=== PATIENT | female | born 1955 | race Caucasian/White ===

== ENCOUNTER → 2016-09-07 | Outpatient (CLI) | payer MEDICARE, OTHER ==
--- NOTE | 2016-09-09 11:20 | MM ---
Reason for exam: screening (asymptomatic). Last mammogram was performed 2 years and 7 months ago. History: Patient is postmenopausal. Physical Findings: A clinical breast exam by your physician is recommended on an annual basis and results should be correlated with mammographic findings. MG 3D Screening Mammo W/Cad Bilateral CC and MLO view(s) were taken. Prior study comparison: February 18, 2014, mammogram. There are stable bilateral round masses. No significant changes when compared with prior studies. ASSESSMENT: Benign, BI-RAD 2 RECOMMENDATION: Routine screening mammogram of both breasts in 1 year.
== END | disposition home or self-care (01) ==
LOC: RADMAMWWP 09:09
PROVIDERS: ATTEND Family Medicine
DX: Z12.31 Encounter for screening mammogram for malignant neoplasm of breast (principal)
CPT/HCPCS: 77063; G0202

== ENCOUNTER 2017-03-23 05:54 | Emergency (ER) | payer MEDICARE, OTHER ==
[2017-03-23 06:00] VITALS: BP 96/68; PULSE 87; RESP 18; TEMP 97.5
[2017-03-23] MEDS ORDERED: KETOROLAC 60 MG/2 ML VIAL IM STA (06:35)
--- NOTE | 2017-03-23 06:40 | ED ---
General Adult HPI - General Chief complaint: Extremity Injury, Lower Stated complaint: foot pain Time Seen by Provider: 03/23/17 06:17 Source: patient, RN notes reviewed Mode of arrival: EMS Limitations: no limitations - History of Present Illness Initial comments: Patient is a pleasant [age]-year-old female presenting to the emergency Department with left great toe pain. Onset of symptoms was a day or 2 ago. Discomfort has been worsening since that time. Discomfort feels like an ache and is nagging. No history of similar symptoms previously. Discomfort does increase with movement. No other area of involvement. No fever. - Related Data Home Medications Medication Instructions Recorded Confirmed DULoxetine HCL [Cymbalta] 30 mg PO DAILY 12/31/15 01/08/16 Ergocalciferol [Vitamin D2 50,000 unit PO FR 12/31/15 01/08/16 (DRISDOL)] Gabapentin [Neurontin] 300 mg PO TID PRN 01/08/16 01/08/16 metFORMIN HCL [Glucophage] 500 mg PO BID 01/08/16 01/08/16 Previous Rx's Medication Instructions Recorded Hydrocodone/Acetaminophen [[place] 1 tab PO Q6HR PRN #20 tab 12/31/15 5-325] Nystatin 100,000 Unit/gm Powd 1 applic TOPICAL BID #30 gram 12/31/15 [Mycostatin Powder] Butalb/APAP/Caff 50-325-40Mg 1 each PO Q4HR PRN #0 tab 01/14/16 [Fioricet 50-325-40] Famotidine [Pepcid] 20 mg PO DAILY tab 01/14/16 Loperamide [Imodium] 2 mg PO QID PRN #0 cap 01/14/16 amLODIPine [Norvasc] 5 mg PO DAILY #0 tab 01/14/16 Indomethacin [Indocin] 50 mg PO TID PRN #20 capsule 03/23/17 Allergies Allergy/AdvReac Type Severity Reaction Status Date / Time No Known Allergies Allergy Verified 03/23/17 05:55 Review of Systems ROS Statement: Those systems with pertinent positive or pertinent negative responses have been documented in the HPI. ROS Other: All systems not noted in ROS Statement are negative. Constitutional: Denies: fever Eyes: Denies: eye pain ENT: Denies: ear pain Respiratory: Denies: cough Cardiovascular: Denies: chest pain Endocrine: Denies: fatigue Gastrointestinal: Denies: abdominal pain Genitourinary: Denies: dysuria Musculoskeletal: Denies: back pain Skin: Denies: lesions Neurological: Denies: headache Past Medical History Past Medical History: Diabetes Mellitus, Hyperlipidemia, Hypertension, Seizure Disorder Additional Past Medical History / Comment(s): uti, cerebral palsy on with side side weakness. History of Any Multi-Drug Resistant Organisms: None Reported Past Surgical History: Orthopedic Surgery Additional Past Surgical History / Comment(s): wrist surgery, right ankle, Past Anesthesia/Blood Transfusion Reactions: No Reported Reaction Past Psychological History: Anxiety, Depression Smoking Status: Never smoker Past Alcohol Use History: None Reported Past Drug Use History: None Reported - Past Family History Father Family Medical History: Dementia Additional Family Medical History / Comment(s): Parkinsons and Alzheimers Mother Family Medical History: Myocardial Infarction ([place]) General Exam Limitations: no limitations General appearance: alert, in no apparent distress Eye exam: Present: normal appearance Respiratory exam: Present: normal lung sounds bilaterally Cardiovascular Exam: Present: regular rate, normal rhythm Extremities exam: Present: other (Left great toe at the metatarsophalangeal joint with mild swelling and mild erythema. There is warmth. Discomfort with range of motion.) Neurological exam: Present: alert Psychiatric exam: Present: normal affect, normal mood Skin exam: Present: erythema (Mild erythema left great toe at the metatarsal interphalangeal joint.) Course Vital Signs 03/23/17 05:55 Temperature 97.5 F L Pulse Rate 87 Respiratory 18 Rate Blood Pressure 96/68 O2 Sat by Pulse 99 Oximetry Medical Decision Making - Medical Decision Making Patient updated including foods to avoid. Patient states these are all of her favorite foods. Disposition Clinical Impression: Gout Disposition: HOME SELF-CARE Condition: Stable Instructions: Gout (ED) Additional Instructions: Please follow-up to in the next couple days for recheck and further evaluation and further medications. Return for fever, worsening or change in symptoms or other concerns. Prescriptions: Indomethacin [Indocin] 50 mg PO TID PRN #20 capsule PRN Reason: Pain Referrals: Tonya Walalce DO [Primary Care Provider] - 1-2 days Time of Disposition: 06:40
== END 2017-03-23 06:51 | disposition home or self-care (01) ==
LOC: EC 05:54
DX: M10.9 Gout, unspecified (principal); F32.9 Major depressive disorder, single episode, unspecified; F41.9 Anxiety disorder, unspecified; E11.9 Type 2 diabetes mellitus without complications; G40.909 Epilepsy, unspecified, not intractable, without status epilepticus; Z98.890 Other specified postprocedural states; Z79.84 Long term (current) use of oral hypoglycemic drugs; Z79.899 Other long term (current) drug therapy
CPT/HCPCS: 99283; 96372; J1885

== ENCOUNTER 2017-04-11 06:50 | Day surgery (SDC) | payer MEDICARE, OTHER ==
[2017-04-08 09:43] VITALS: BMI 44.9
[2017-04-11 07:28] VITALS: RESP 16; TEMP 98.2
[2017-04-11] MEDS ORDERED: LACTATED RINGERS 1,000 ML IV ONE (07:28)
[2017-04-11 07:34] LABS: Glucose,Whole Blood 128 mg/dL (75-99)
[2017-04-11] MEDS ORDERED: PROPOFOL 10 MG/ML 20 ML VIAL IV ONE (07:45)
[2017-04-11] MEDS ORDERED: MIDAZOLAM 2 MG/2 ML VIAL ONE (07:45)
[2017-04-11] MEDS ORDERED: fentaNYL (PF) 50 MCG/ML 2 ML AMP ONE (07:45)
--- NOTE | 2017-04-11 07:50 | P.GSHP ---
History of Present Illness H&P Date: 04/11/17 Chief Complaint: Screening colonoscopy This 61-year-old female who presents today for screening colonoscopy. She denies a significant GI complaints. - Constitutional Constitutional: Reports as per HPI Past Medical History Past Medical History: Diabetes Mellitus, Hyperlipidemia, Hypertension Additional Past Medical History / Comment(s): uti, states does not have high BP anymore. Cerebral Palsy with R sided weakness. History of Any Multi-Drug Resistant Organisms: None Reported Past Surgical History: Orthopedic Surgery Additional Past Surgical History / Comment(s): wrist surgery, right ankle Past Anesthesia/Blood Transfusion Reactions: No Reported Reaction Smoking Status: Never smoker - Past Family History Father Family Medical History: Dementia Additional Family Medical History / Comment(s): Parkinsons and Alzheimers Mother Family Medical History: Myocardial Infarction ([place]) Medications and Allergies Home Medications Medication Instructions Recorded Confirmed Type DULoxetine HCL [Cymbalta] 30 mg PO DAILY 12/31/15 04/08/17 History Ergocalciferol [Vitamin D2 50,000 unit PO FR 12/31/15 04/08/17 History (DRISDOL)] Nystatin 100,000 Unit/gm Powd 1 applic TOPICAL BID #30 gram 12/31/15 04/11/17 Rx [Mycostatin Powder] metFORMIN HCL [Glucophage] 500 mg PO BID 01/08/16 04/08/17 History Butalb/APAP/Caff 50-325-40Mg 1 each PO Q4HR PRN #0 tab 01/14/16 04/11/17 Rx [Fioricet 50-325-40] Famotidine [Pepcid] 20 mg PO DAILY tab 01/14/16 04/08/17 Rx Lisinopril-Hctz 20-25 mg 20 - 25 PO QAM 04/11/17 History [Zestoretic 20-25] Allergies Allergy/AdvReac Type Severity Reaction Status Date / Time No Known Allergies Allergy Verified 04/11/17 07:15 Surgical - Exam Vital Signs Temp Pulse Resp BP Pulse Ox 98.2 F 108 H 16 145/72 95 04/11/17 07:27 04/11/17 07:27 04/11/17 07:27 04/11/17 07:27 04/11/17 07:27 - General well developed, no distress - Eyes PERRL - ENT normal pinna - Neck no masses - Respiratory normal expansion - Cardiovascular Rhythm: regular - Abdomen Abdomen: soft, non tender Results - Labs Abnormal Lab Results - Last 24 Hours (Table) 04/11/17 Range/Units 07:29 POC Glucose (mg/dL) 128 H (75-99) mg/dL Assessment and Plan Assessment: We'll perform screening colonoscopy.
--- NOTE | 2017-04-11 08:05 | P.OP ---
Date of Procedure: 04/11/17 Preoperative Diagnosis: Screening colonoscopy Postoperative Diagnosis: Diverticulosis External hemorrhoids Procedure(s) Performed: Colonoscopy Anesthesia: MAC Surgeon: Jason Arredondo Pathology: none sent Condition: stable Disposition: PACU Description of Procedure: The patient's placed on the endoscopy table in the lateral position. She received IV sedation. Digital rectal exam was performed which revealed external and internal hemorrhoids. Flexible colonoscope was then placed patient anus passed throughout the entire colon. The ileocecal valve was visualized. The cecum, ascending and transverse colon appeared normal. In the descending; was mild diverticular changes. The scope was then brought back the rectum and this appeared normal. The scope was withdrawn for patient.
[2017-04-11 08:32] VITALS: BP 121/67; PULSE 90
== END 2017-04-11 08:55 | disposition home or self-care (01) ==
LOC: ORWHC2ENDO 06:50
PROVIDERS: ATTEND Surgery
DX: Z12.11 Encounter for screening for malignant neoplasm of colon (principal); K57.30 Diverticulosis of large intestine without perforation or abscess without bleeding; K64.4 Residual hemorrhoidal skin tags; E11.9 Type 2 diabetes mellitus without complications; E78.5 Hyperlipidemia, unspecified; G80.9 Cerebral palsy, unspecified; R53.1 Weakness; Z79.84 Long term (current) use of oral hypoglycemic drugs; Z79.899 Other long term (current) drug therapy
CPT/HCPCS: J2250; J3010; J2704; G0121

== ENCOUNTER → 2017-10-19 | Outpatient (CLI) | payer MEDICARE, OTHER ==
--- NOTE | 2017-10-20 14:13 | MM ---
Reason for exam: screening (asymptomatic). Last mammogram was performed 1 year and 1 month ago. History: Patient is postmenopausal. Physical Findings: A clinical breast exam by your physician is recommended on an annual basis and results should be correlated with mammographic findings. MG 3D Screening Mammo W/Cad Bilateral CC and MLO view(s) were taken. Prior study comparison: September 07, 2016, bilateral MG 3d screening mammo w/cad. February 18, 2014, mammogram. There are scattered fibroglandular densities. There are benign appearing round calcifications bilaterally. Previous mammotome biopsy in the right breast. There is chronic nodularity in the right breast. There is no discrete abnormality. ASSESSMENT: Benign, BI-RAD 2 RECOMMENDATION: Routine screening mammogram of both breasts in 1 year.
== END | disposition home or self-care (01) ==
LOC: RADMAMWWP 09:59
PROVIDERS: ATTEND Family Medicine
DX: Z12.31 Encounter for screening mammogram for malignant neoplasm of breast (principal)
CPT/HCPCS: 77063; 77067

== ENCOUNTER 2017-11-18 13:05 | Emergency (ER) | payer MEDICARE, OTHER ==
[2017-11-18 13:12] VITALS: BP 138/75; PULSE 101; RESP 18; TEMP 98.3
[2017-11-18] MEDS ORDERED: methylPREDNISolone SOD SUCCI 125 MG/2 ML VIAL IM ONE (13:28)
--- NOTE | 2017-11-18 13:39 | ED ---
Lower Extremity Injury HPI - General Chief Complaint: Extremity Injury, Lower Stated Complaint: Gout pain Time Seen by Provider: 11/18/17 13:22 Source: patient, RN notes reviewed Mode of arrival: wheelchair Limitations: no limitations - History of Present Illness Initial Comments: 62-year-old female presents emergency Department chief complaint of left toe pain. Patient has chronic issues with gout. Patient states she normally receives steroids for this. She did have symptoms started yesterday. No trauma no fever no chills. She states she only has pain at the first MTP in the left foot. - Related Data Home Medications Medication Instructions Recorded Confirmed DULoxetine HCL [Cymbalta] 30 mg PO DAILY 12/31/15 11/18/17 Ergocalciferol [Vitamin D2 50,000 unit PO FR 12/31/15 11/18/17 (DRISDOL)] metFORMIN HCL [Glucophage] 500 mg PO BID 01/08/16 11/18/17 Lisinopril-Hctz 20-25 mg 1 tab PO QAM 04/11/17 11/18/17 [Zestoretic 20-25] Calcitriol [Rocaltrol] 0.25 mcg PO DIRECTED 11/18/17 11/18/17 Previous Rx's Medication Instructions Recorded predniSONE 50 mg PO DAILY #3 tab 11/18/17 Allergies Allergy/AdvReac Type Severity Reaction Status Date / Time No Known Allergies Allergy Verified 11/18/17 13:25 Review of Systems ROS Statement: Those systems with pertinent positive or pertinent negative responses have been documented in the HPI. ROS Other: All systems not noted in ROS Statement are negative. Past Medical History Past Medical History: Diabetes Mellitus, Hyperlipidemia, Hypertension, Seizure Disorder Additional Past Medical History / Comment(s): uti, cerebral palsy on with side side weakness. History of Any Multi-Drug Resistant Organisms: None Reported Past Surgical History: Orthopedic Surgery Additional Past Surgical History / Comment(s): wrist surgery, right ankle Past Anesthesia/Blood Transfusion Reactions: No Reported Reaction Past Psychological History: Anxiety, Depression Smoking Status: Never smoker Past Alcohol Use History: None Reported Past Drug Use History: None Reported - Past Family History Father Family Medical History: Dementia Additional Family Medical History / Comment(s): Parkinsons and Alzheimers Mother Family Medical History: Myocardial Infarction ([place]) General Exam Limitations: no limitations General appearance: alert, in no apparent distress Head exam: Present: atraumatic, normocephalic, normal inspection Respiratory exam: Present: normal lung sounds bilaterally. Absent: respiratory distress, wheezes, rales, rhonchi, stridor Cardiovascular Exam: Present: regular rate, normal rhythm, normal heart sounds. Absent: systolic murmur, diastolic murmur, rubs, gallop, clicks Extremities exam: Present: other (First MTP region there is mild erythema mild warmth full range of motion neurovascular intact) Course Vital Signs 11/18/17 13:07 Temperature 98.3 F Pulse Rate 101 H Respiratory 18 Rate Blood Pressure 138/75 O2 Sat by Pulse 99 Oximetry Medical Decision Making - Medical Decision Making 62-year-old female presented for toe pain. Patient has clinical signs of gout. Patient has a history gout. She has been treated in the past with steroids she does have mild diabetes. Patient informed to recheck blood sugar. She'll be given an injection of site Medrol now. Patient we given 3 days of prednisone if symptoms persist. Disposition Clinical Impression: Acute gout Disposition: HOME SELF-CARE Condition: Stable Instructions: Gout (ED) Additional Instructions: Please return to the Emergency Department if symptoms worsen or any other concerns. Prescriptions: predniSONE 50 mg PO DAILY #3 tab Is patient prescribed a controlled substance at d/c from ED?: No Referrals: Tonya Wallace DO [Primary Care Provider] - 1-2 days Time of Disposition: 13:39
== END 2017-11-18 14:00 | disposition home or self-care (01) ==
LOC: EC 13:05
DX: M10.9 Gout, unspecified (principal); E11.9 Type 2 diabetes mellitus without complications; I10 Essential (primary) hypertension; F32.9 Major depressive disorder, single episode, unspecified; F41.9 Anxiety disorder, unspecified; Z79.84 Long term (current) use of oral hypoglycemic drugs; Z79.899 Other long term (current) drug therapy
CPT/HCPCS: 99283; 96372; J2930

== ENCOUNTER → 2018-09-27 | Outpatient (CLI) | payer MEDICARE, OTHER ==
--- NOTE | 2018-09-27 11:22 | US ---
EXAMINATION TYPE: US kidneys/renal and bladder DATE OF EXAM: 09/27/2018 COMPARISON: NONE CLINICAL HISTORY: N18.3 chronic kidney disease, stage 3. Pt has cerebral palsy rt side affected probable liver cyst rt lobe 2.5 x 1.9 x 2.5 cm EXAM MEASUREMENTS: Right Kidney: 9.0 x 4.4 x 4.5 cm Left Kidney: 9.1 x 4.7 x 3.8 cm Post Void Residual Volume: 2.6 mL Right Kidney: small cyst lower pole 1.9 x 1.8 x 2.3 cm. This somewhat deep for visualization and thi s cannot reliably be classified as a simple cyst. Left Kidney: thin cortex Bladder: wnl Bilateral Jets seen: left only Normal Post Void Residual: yes IMPRESSION: 1. Cyst at the inferior pole right kidney. This cannot be classified as a simple cyst, monitoring is recommended.
== END | disposition home or self-care (01) ==
LOC: RADUSWWP 07:32
PROVIDERS: ATTEND Internal Medicine Nephrology
DX: N28.1 Cyst of kidney, acquired (principal); N18.3 Chronic kidney disease, stage 3 (moderate)
CPT/HCPCS: 76770

== ENCOUNTER 2019-04-15 13:08 | Emergency (ER) | payer MEDICARE, OTHER ==
[2019-04-15] MEDS ORDERED: ASPIRIN 81 MG PO STA (13:29)
--- NOTE | 2019-04-15 13:38 | ED ---
General Adult HPI - General Chief complaint: Dizziness Stated complaint: Dizzy/Arm Pain Time Seen by Provider: 04/15/19 13:20 Source: patient, RN notes reviewed Mode of arrival: wheelchair Limitations: no limitations - History of Present Illness Initial comments: Patient is a pleasant 63-year-old female presenting to the emergency Department with complaints of left arm discomfort. Discomfort is mild and described as an ache. Onset of symptoms was a couple of days ago. Discomfort is somewhat increased with movement. No chest pain. No dyspnea. No nausea or diaphoresis. Patient does feel a little bit lightheaded. No history of similar symptoms previously. - Related Data Home Medications Medication Instructions Recorded Confirmed DULoxetine HCL [Cymbalta] 30 mg PO DAILY 12/31/15 11/18/17 Ergocalciferol [Vitamin D2 50,000 unit PO FR 12/31/15 11/18/17 (DRISDOL)] metFORMIN HCL [Glucophage] 500 mg PO BID 01/08/16 11/18/17 Lisinopril-Hctz 20-25 mg 1 tab PO QAM 04/11/17 11/18/17 [Zestoretic 20-25] Calcitriol [Rocaltrol] 0.25 mcg PO DIRECTED 11/18/17 11/18/17 Previous Rx's Medication Instructions Recorded predniSONE 50 mg PO DAILY #3 tab 11/18/17 Allergies Allergy/AdvReac Type Severity Reaction Status Date / Time No Known Allergies Allergy Verified 04/15/19 13:12 Review of Systems ROS Statement: Those systems with pertinent positive or pertinent negative responses have been documented in the HPI. ROS Other: All systems not noted in ROS Statement are negative. Constitutional: Denies: fever Eyes: Denies: eye pain ENT: Denies: ear pain Respiratory: Denies: cough, dyspnea Cardiovascular: Denies: chest pain Endocrine: Denies: fatigue Gastrointestinal: Denies: abdominal pain Genitourinary: Denies: dysuria Musculoskeletal: Denies: back pain Skin: Denies: rash Neurological: Denies: weakness Past Medical History Past Medical History: Diabetes Mellitus, Hyperlipidemia, Hypertension, Seizure Disorder Additional Past Medical History / Comment(s): uti, cerebral palsy on with rt side weakness. History of Any Multi-Drug Resistant Organisms: None Reported Past Surgical History: Orthopedic Surgery Additional Past Surgical History / Comment(s): wrist surgery, right ankle Past Anesthesia/Blood Transfusion Reactions: No Reported Reaction Past Psychological History: Anxiety, Depression Smoking Status: Never smoker Past Alcohol Use History: None Reported Past Drug Use History: None Reported - Past Family History Father Family Medical History: Dementia Additional Family Medical History / Comment(s): Parkinsons and Alzheimers Mother Family Medical History: Myocardial Infarction ([place]) General Exam Limitations: no limitations General appearance: alert, in no apparent distress Head exam: Present: normocephalic Eye exam: Present: normal appearance, PERRL ENT exam: Present: normal oropharynx Neck exam: Present: normal inspection Respiratory exam: Present: normal lung sounds bilaterally. Absent: chest wall tenderness Cardiovascular Exam: Present: regular rate, normal rhythm Expanded Peripheral pulses: 2+: Radial (R), Radial (L), Dorsalis Pedis (R), Dorsalis Pedis (L) GI/Abdominal exam: Present: soft. Absent: tenderness Extremities exam: Present: normal inspection. Absent: pedal edema, calf tenderness Neurological exam: Present: alert Psychiatric exam: Present: normal affect, normal mood Skin exam: Present: normal color Course Vital Signs 04/15/19 04/15/19 04/15/19 13:09 13:28 13:45 Temperature 98.3 F Pulse Rate 121 H 98 90 Respiratory 22 16 16 Rate Blood Pressure 89/48 102/69 O2 Sat by Pulse 94 L 95 97 Oximetry 04/15/19 14:00 Temperature Pulse Rate 93 Respiratory 16 Rate Blood Pressure 99/60 O2 Sat by Pulse 95 Oximetry EKG Findings - EKG Comments: EKG Findings:: Sinus tachycardia 102. LA 140. QRS 86. QT 366. QTc 477. Normal axis. Normal QRS. No acute ST change. Medical Decision Making - Medical Decision Making Patient reevaluated and resting comfortably in bed. Patient only complains of mild unchanged left arm discomfort. Patient again states discomfort is increased with movements. Patient still denies any chest discomfort. Patient updated on results and patient requests discharge home. - Lab Data Result diagrams: 04/15/19 12:30 04/15/19 12:30 Lab Results 04/15/19 04/15/19 04/15/19 Range/Units 12:30 12:30 12:30 WBC 13.9 H (3.8-10.6) k/uL RBC 4.88 (3.80-5.40) m/uL Hgb 15.2 (11.4-16.0) gm/dL Hct 46.4 H (34.0-46.0) % MCV 95.0 (80.0-100.0) fL MCH 31.1 (25.0-35.0) pg MCHC 32.7 (31.0-37.0) g/dL RDW 13.5 (11.5-15.5) % Plt Count 374 (150-450) k/uL Neutrophils % 74 % Lymphocytes % 19 % Monocytes % 4 % Eosinophils % 2 % Basophils % 0 % Neutrophils # 10.4 H (1.3-7.7) k/uL Lymphocytes # 2.6 (1.0-4.8) k/uL Monocytes # 0.5 (0-1.0) k/uL Eosinophils # 0.3 (0-0.7) k/uL Basophils # 0.1 (0-0.2) k/uL PT (9.0-12.0) sec INR (<1.2) APTT (22.0-30.0) sec D-Dimer (<0.60) mg/L FEU Sodium 137 (137-145) mmol/L Potassium 4.0 (3.5-5.1) mmol/L Chloride 103 (98-107) mmol/L Carbon Dioxide 18 L (22-30) mmol/L Anion Gap 16 mmol/L BUN 39 H (7-17) mg/dL Creatinine 1.92 H (0.52-1.04) mg/dL Est GFR (CKD-EPI)AfAm 32 (>60 ml/min/1.73 sqM) Est GFR (CKD-EPI)NonAf 27 (>60 ml/min/1.73 sqM) Glucose 174 H (74-99) mg/dL Calcium 9.9 (8.4-10.2) mg/dL Magnesium 2.0 (1.6-2.3) mg/dL Total Bilirubin 0.8 (0.2-1.3) mg/dL AST 25 (14-36) U/L ALT 19 (4-34) U/L Alkaline Phosphatase 84 (38-126) U/L Troponin I <0.012 (0.000-0.034) ng/mL Total Protein 8.1 (6.3-8.2) g/dL Albumin 4.2 (3.5-5.0) g/dL 04/15/19 Range/Units 14:03 WBC (3.8-10.6) k/uL RBC (3.80-5.40) m/uL Hgb (11.4-16.0) gm/dL Hct (34.0-46.0) % MCV (80.0-100.0) fL MCH (25.0-35.0) pg MCHC (31.0-37.0) g/dL RDW (11.5-15.5) % Plt Count (150-450) k/uL Neutrophils % % Lymphocytes % % Monocytes % % Eosinophils % % Basophils % % Neutrophils # (1.3-7.7) k/uL Lymphocytes # (1.0-4.8) k/uL Monocytes # (0-1.0) k/uL Eosinophils # (0-0.7) k/uL Basophils # (0-0.2) k/uL PT 9.6 (9.0-12.0) sec INR 0.9 (<1.2) APTT 24.7 (22.0-30.0) sec D-Dimer 0.38 (<0.60) mg/L FEU Sodium (137-145) mmol/L Potassium (3.5-5.1) mmol/L Chloride (98-107) mmol/L Carbon Dioxide (22-30) mmol/L Anion Gap mmol/L BUN (7-17) mg/dL Creatinine (0.52-1.04) mg/dL Est GFR (CKD-EPI)AfAm (>60 ml/min/1.73 sqM) Est GFR (CKD-EPI)NonAf (>60 ml/min/1.73 sqM) Glucose (74-99) mg/dL Calcium (8.4-10.2) mg/dL Magnesium (1.6-2.3) mg/dL Total Bilirubin (0.2-1.3) mg/dL AST (14-36) U/L ALT (4-34) U/L Alkaline Phosphatase (38-126) U/L Troponin I (0.000-0.034) ng/mL Total Protein (6.3-8.2) g/dL Albumin (3.5-5.0) g/dL - Radiology Data Radiology results: image reviewed (Chest x-ray shows no acute process) Disposition Clinical Impression: Arm pain Disposition: HOME SELF-CARE Condition: Stable Instructions (If sedation given, give patient instructions): Arm Pain (ED) Additional Instructions: Please follow-up tomorrow with your primary care physician. Return for increased pain, chest pain or difficulty in breathing, change or worsening symptoms or other concerns. Is patient prescribed a controlled substance at d/c from ED?: No Referrals: Tonya Wallace DO [Primary Care Provider] - 1-2 days Time of Disposition: 15:02
[2019-04-15 13:41] LABS: Basophils # (A) 0.1 k/uL (0-0.2); Basophils % (A) 0 %; Eosinophils # (A) 0.3 k/uL (0-0.7); Eosinophils % (A) 2 %; HCT 46.4 % (34.0-46.0); HGB 15.2 gm/dL (11.4-16.0); Lymphocytes # (A) 2.6 k/uL (1.0-4.8); Lymphocytes % (A) 19 %; MCH 31.1 pg (25.0-35.0); MCHC 32.7 g/dL (31.0-37.0); Mean Platelet Volume 7.4; Monocytes # (A) 0.5 k/uL (0-1.0); Monocytes % (A) 4 %; Neutrophils # (A) 10.4 k/uL (1.3-7.7); Neutrophils % (A) 74 %; Platelet Count 374 k/uL (150-450); RBC 4.88 m/uL (3.80-5.40); RDW 13.5 % (11.5-15.5); WBC 13.9 k/uL (3.8-10.6)
--- NOTE | 2019-04-15 13:58 | XR ---
EXAMINATION TYPE: XR chest 2V DATE OF EXAM: 04/15/2019 COMPARISON: 01/08/2016 HISTORY: 63-year-old female chest pain and shortness of breath TECHNIQUE: PA and lateral views FINDINGS: Heart is upper limits of normal in size. Aorta and pulmonary vasculature within normal limits. Mild i nterstitial prominence. No consolidation or pleural effusion. IMPRESSION: Chronic changes without acute cardiopulmonary process.
[2019-04-15 14:04] LABS: Albumin 4.2 g/dL (3.5-5.0); Calcium 9.9 mg/dL (8.4-10.2); Total Bilirubin 0.8 mg/dL (0.2-1.3); Total Protein 8.1 g/dL (6.3-8.2)
[2019-04-15 14:07] VITALS: RESP 16
[2019-04-15 14:34] LABS: D-Dimer 0.38 mg/L FEU (<0.60); INR 0.9 (<1.2); Partial Thromboplastin Time 24.7 sec (22.0-30.0); Prothrombin Time 9.6 sec (9.0-12.0)
[2019-04-15] MEDS ORDERED: ACETAMINOPHEN TAB 500 MG TAB PO STA (15:02)
[2019-04-15 15:21] VITALS: BP 127/95; PULSE 65; TEMP 98.2
== END 2019-04-15 15:15 | disposition home or self-care (01) ==
LOC: EC 13:08
DX: M79.602 Pain in left arm (principal); R42 Dizziness and giddiness; E11.9 Type 2 diabetes mellitus without complications; I10 Essential (primary) hypertension; E78.5 Hyperlipidemia, unspecified; G40.909 Epilepsy, unspecified, not intractable, without status epilepticus; G80.9 Cerebral palsy, unspecified; F41.9 Anxiety disorder, unspecified; F32.9 Major depressive disorder, single episode, unspecified; Z79.84 Long term (current) use of oral hypoglycemic drugs; Z79.899 Other long term (current) drug therapy
CPT/HCPCS: 36415; 71046; 80053; 83735; 84484; 85025; 85379; 85610; 85730; 93005; 99284

== ENCOUNTER 2019-07-26 17:44 | Emergency (ER) | payer MEDICARE ==
[2019-07-26] MEDS ORDERED: SODIUM CHLORIDE 0.9% 1,000 ML IV STA (18:16)
--- NOTE | 2019-07-26 18:16 | ED ---
General Adult HPI - General Chief complaint: Recheck/Abnormal Lab/Rx Stated complaint: Hypotensive Time Seen by Provider: 07/26/19 17:45 Source: patient, EMS, RN notes reviewed, old records reviewed Mode of arrival: EMS Limitations: no limitations - History of Present Illness Initial comments: This is a 64-year-old female who presents to the emergency department complaining she's been feeling lightheaded over the last few days. Patient states she was told to take lisinopril and cut the pill in half and take it once a day. Patient states she didn't want to cut in half so she's been taking a full pill. Patient blood pressure was low in the emesis he was given 500 mL of fluid her blood pressure is 100/64. Patient states she feels better but not quite to her baseline. Patient denies any chest pain. Patient denies any difficulty breathing first breath. Patient denies any headache patient denies numbness weakness. Patient denies any abdominal pain patient denies any recent nausea vomiting diarrhea per patient denies any dysuria hematuria urinary frequency. - Related Data Home Medications Medication Instructions Recorded Confirmed DULoxetine HCL [Cymbalta] 30 mg PO DAILY 12/31/15 11/18/17 Ergocalciferol [Vitamin D2 50,000 unit PO FR 12/31/15 11/18/17 (DRISDOL)] metFORMIN HCL [Glucophage] 500 mg PO BID 01/08/16 11/18/17 Lisinopril-Hctz 20-25 mg 1 tab PO QAM 04/11/17 11/18/17 [Zestoretic 20-25] Calcitriol [Rocaltrol] 0.25 mcg PO DIRECTED 11/18/17 11/18/17 Previous Rx's Medication Instructions Recorded predniSONE 50 mg PO DAILY #3 tab 11/18/17 Allergies Allergy/AdvReac Type Severity Reaction Status Date / Time No Known Allergies Allergy Verified 07/26/19 17:45 Review of Systems ROS Statement: Those systems with pertinent positive or pertinent negative responses have been documented in the HPI. ROS Other: All systems not noted in ROS Statement are negative. Past Medical History Past Medical History: Diabetes Mellitus, Hyperlipidemia, Hypertension, Seizure Disorder Additional Past Medical History / Comment(s): uti, cerebral palsy on with rt side weakness. History of Any Multi-Drug Resistant Organisms: None Reported Past Surgical History: Orthopedic Surgery Additional Past Surgical History / Comment(s): wrist surgery, right ankle Past Anesthesia/Blood Transfusion Reactions: No Reported Reaction Past Psychological History: Anxiety, Depression Smoking Status: Never smoker Past Alcohol Use History: None Reported Past Drug Use History: None Reported - Past Family History Father Family Medical History: Dementia Additional Family Medical History / Comment(s): Parkinsons and Alzheimers Mother Family Medical History: Myocardial Infarction ([place]) General Exam - General Exam Comments Initial Comments: GENERAL: Patient is well-developed and well-nourished. Patient is nontoxic and well- hydrated and is in mild distress. ENT: Neck is soft and supple. No significant lymphadenopathy is noted. Oropharynx is clear. Moist mucous membranes. Neck has full range of motion without eliciting any pain. EYES: The sclera were anicteric and conjunctiva were pink and moist. Extraocular movements were intact and pupils were equal round and reactive to light. Eyelids were unremarkable. PULMONARY: Unlabored respirations. Good breath sounds bilaterally. No audible rales rhonchi or wheezing was noted. CARDIOVASCULAR: There is a regular rate and rhythm without any murmurs gallops or rubs. ABDOMEN: Soft and nontender with normal bowel sounds. SKIN: Skin is clear with no lesions or rashes and otherwise unremarkable. NEUROLOGIC: Patient is alert and oriented x3. Cranial nerves II through XII are grossly intact. Motor and sensory are also intact. Normal speech, volume and content. Symmetrical smile. MUSCULOSKELETAL: Normal extremities with adequate strength and full range of motion. LYMPHATICS: No significant lymphadenopathy is noted PSYCHIATRIC: Normal psychiatric evaluation. Limitations: no limitations Course Vital Signs 07/26/19 07/26/19 07/26/19 17:45 18:30 19:00 Temperature 98.8 F Pulse Rate 76 73 75 Respiratory 18 18 18 Rate Blood Pressure 100/69 91/43 99/53 O2 Sat by Pulse 97 95 98 Oximetry 07/26/19 07/26/19 20:00 20:23 Temperature Pulse Rate 75 Respiratory 15 Rate Blood Pressure 101/69 82/41 O2 Sat by Pulse 97 Oximetry Medical Decision Making - Medical Decision Making EKG shows a normal sinus rhythm at 80 bpm ND interval is 144 QRS is 88 QT interval 392 QTC is 452. Patient has no ST segment elevation pATIENT'S BLOOD PRESSURE WAS STABLE IN THE EMERGENCY DEPARTMENT SHE WAS ABLE TO AMBULATE WITHOUT PROBLEM AND SHE FELT BACK TO HER BASELINE ON DISCHARGE. - Lab Data Result diagrams: 07/26/19 18:08 07/26/19 18:08 Lab Results 07/26/19 07/26/19 07/26/19 Range/Units 18:08 18:08 18:08 WBC 12.0 H (3.8-10.6) k/uL RBC 4.70 (3.80-5.40) m/uL Hgb 14.6 (11.4-16.0) gm/dL Hct 46.0 (34.0-46.0) % MCV 97.8 (80.0-100.0) fL MCH 31.0 (25.0-35.0) pg MCHC 31.7 (31.0-37.0) g/dL RDW 13.2 (11.5-15.5) % Plt Count 302 (150-450) k/uL Neutrophils % 69 % Lymphocytes % 22 % Monocytes % 6 % Eosinophils % 2 % Basophils % 1 % Neutrophils # 8.3 H (1.3-7.7) k/uL Lymphocytes # 2.6 (1.0-4.8) k/uL Monocytes # 0.7 (0-1.0) k/uL Eosinophils # 0.2 (0-0.7) k/uL Basophils # 0.1 (0-0.2) k/uL PT 9.7 (9.0-12.0) sec INR 0.9 (<1.2) APTT 18.2 L (22.0-30.0) sec Sodium 137 (137-145) mmol/L Potassium 4.0 (3.5-5.1) mmol/L Chloride 105 (98-107) mmol/L Carbon Dioxide 21 L (22-30) mmol/L Anion Gap 11 mmol/L BUN 57 H (7-17) mg/dL Creatinine 1.96 H (0.52-1.04) mg/dL Est GFR (CKD-EPI)AfAm 30 (>60 ml/min/1.73 sqM) Est GFR (CKD-EPI)NonAf 26 (>60 ml/min/1.73 sqM) Glucose 140 H (74-99) mg/dL Calcium 9.2 (8.4-10.2) mg/dL Magnesium 2.3 (1.6-2.3) mg/dL Total Bilirubin 0.6 (0.2-1.3) mg/dL AST 25 (14-36) U/L ALT 26 (4-34) U/L Alkaline Phosphatase 83 (38-126) U/L Troponin I (0.000-0.034) ng/mL Total Protein 7.1 (6.3-8.2) g/dL Albumin 3.7 (3.5-5.0) g/dL 07/26/19 Range/Units 18:08 WBC (3.8-10.6) k/uL RBC (3.80-5.40) m/uL Hgb (11.4-16.0) gm/dL Hct (34.0-46.0) % MCV (80.0-100.0) fL MCH (25.0-35.0) pg MCHC (31.0-37.0) g/dL RDW (11.5-15.5) % Plt Count (150-450) k/uL Neutrophils % % Lymphocytes % % Monocytes % % Eosinophils % % Basophils % % Neutrophils # (1.3-7.7) k/uL Lymphocytes # (1.0-4.8) k/uL Monocytes # (0-1.0) k/uL Eosinophils # (0-0.7) k/uL Basophils # (0-0.2) k/uL PT (9.0-12.0) sec INR (<1.2) APTT (22.0-30.0) sec Sodium (137-145) mmol/L Potassium (3.5-5.1) mmol/L Chloride (98-107) mmol/L Carbon Dioxide (22-30) mmol/L Anion Gap mmol/L BUN (7-17) mg/dL Creatinine (0.52-1.04) mg/dL Est GFR (CKD-EPI)AfAm (>60 ml/min/1.73 sqM) Est GFR (CKD-EPI)NonAf (>60 ml/min/1.73 sqM) Glucose (74-99) mg/dL Calcium (8.4-10.2) mg/dL Magnesium (1.6-2.3) mg/dL Total Bilirubin (0.2-1.3) mg/dL AST (14-36) U/L ALT (4-34) U/L Alkaline Phosphatase (38-126) U/L Troponin I <0.012 (0.000-0.034) ng/mL Total Protein (6.3-8.2) g/dL Albumin (3.5-5.0) g/dL Disposition Clinical Impression: Medication administered in error, Hypotension Disposition: HOME SELF-CARE Condition: Good Instructions (If sedation given, give patient instructions): Hypotension (ED) Additional Instructions: Patient should take blood pressure medications as prescribed. Is patient prescribed a controlled substance at d/c from ED?: No Referrals: Tonya Wallace DO [Primary Care Provider] - 1-2 days
[2019-07-26 18:28] LABS: Basophils # (A) 0.1 k/uL (0-0.2); Basophils % (A) 1 %; Eosinophils # (A) 0.2 k/uL (0-0.7); Eosinophils % (A) 2 %; HGB 14.6 gm/dL (11.4-16.0); Lymphocytes # (A) 2.6 k/uL (1.0-4.8); Lymphocytes % (A) 22 %; MCHC 31.7 g/dL (31.0-37.0); MCV 97.8 fL (80.0-100.0); Mean Platelet Volume 7.7; Monocytes # (A) 0.7 k/uL (0-1.0); Monocytes % (A) 6 %; Neutrophils # (A) 8.3 k/uL (1.3-7.7); Neutrophils % (A) 69 %; Platelet Count 302 k/uL (150-450); RDW 13.2 % (11.5-15.5)
[2019-07-26 18:39] LABS: Albumin 3.7 g/dL (3.5-5.0); Calcium 9.2 mg/dL (8.4-10.2); Magnesium 2.3 mg/dL (1.6-2.3); Total Bilirubin 0.6 mg/dL (0.2-1.3); Total Protein 7.1 g/dL (6.3-8.2)
[2019-07-26 18:47] LABS: INR 0.9 (<1.2); Prothrombin Time 9.7 sec (9.0-12.0)
[2019-07-26 18:49] LABS: Partial Thromboplastin Time 18.2 sec (22.0-30.0)
[2019-07-26 19:03] VITALS: PULSE 75
[2019-07-26 21:24] VITALS: BP 110/55; RESP 17; TEMP 98.7
== END 2019-07-26 21:22 | disposition home or self-care (01) ==
LOC: EC 17:44
DX: I95.9 Hypotension, unspecified (principal); T50.901A Poisoning by unspecified drugs, medicaments and biological substances, accidental (unintentional), initial encounter; I10 Essential (primary) hypertension; E11.9 Type 2 diabetes mellitus without complications; F41.9 Anxiety disorder, unspecified; F32.9 Major depressive disorder, single episode, unspecified; G80.9 Cerebral palsy, unspecified; Z79.84 Long term (current) use of oral hypoglycemic drugs; Z79.899 Other long term (current) drug therapy
CPT/HCPCS: 36415; 80053; 83735; 84484; 85025; 85610; 85730; 93005; 96360; 96361; 99285

== ENCOUNTER → 2019-09-12 | Outpatient (CLI) | payer MEDICARE ==
--- NOTE | 2019-09-12 09:37 | US ---
EXAMINATION TYPE: US kidneys/renal and bladder DATE OF EXAM: 09/12/2019 COMPARISON: NONE CLINICAL HISTORY: N18.3 CKD. EXAM MEASUREMENTS: Right Kidney: 9.9 x 3.7 x 4.2 cm Left Kidney: 9.8 x 4.9 x 3.9 cm Morbidly obese patient, unable to hold her breath, technically difficult study Right Kidney: inferior pole simple appearing cyst measuring 2.3 x2.4 x 2.2 Left Kidney: No hydronephrosis or obvious masses seen Bladder: patient incontinent, unable to hold bladder, not seen IMPRESSION: 1. Right renal cyst.
== END | disposition home or self-care (01) ==
LOC: RADUSWWP 08:52
PROVIDERS: ATTEND Internal Medicine Nephrology
DX: N28.1 Cyst of kidney, acquired (principal); N18.3 Chronic kidney disease, stage 3 (moderate)
CPT/HCPCS: 76770

== ENCOUNTER 2020-01-05 17:37 | Emergency (ER) | payer MEDICARE, OTHER ==
[2020-01-05 17:43] VITALS: RESP 18
--- NOTE | 2020-01-05 18:53 | ED ---
Female Urogenital HPI - General Source: patient Mode of arrival: ambulatory Limitations: no limitations <Gin Lacey - Last Filed: 01/05/20 18:49> <Debbi Ivory - Last Filed: 01/05/20 20:15> - General Chief complaint: Vaginal Bleeding Stated complaint: Abd pain - History of Present Illness Initial comments: Patient is a 64-year-old female, with history of cerebral palsy, mostly affecting right side, presenting to the emergency Department with complaints of a vaginal odor, bleeding at that she believes is coming from vaginal, for the past 2 days. Patient states she has been dealing with a rash in the folds of her abdomen for the past few weeks but that has been getting better. Patient thought the odor was coming from the rash however now she believes it is coming from her vagina. Patient states she had some blood in her underwear earlier today and thinks it is from her vagina. Patient states she has not had a m enstrual cycle in over 4 years. Patient denies any urinary complaints to his frequency, dysuria, pressure. She does admit to some lower abdominal "bloating." She denies any abdominal pain, no nausea or vomiting, no diarrhea. She denies any fever or chills, no chest pain or shortness of breath. Patient has no further complaints at this time. Patient states she did make an appointment with her PCP in 2 days. Upon arrival to the ER her vital signs are stable. (Gin Lacey) - Related Data Home Medications Medication Instructions Recorded Confirmed DULoxetine HCL [Cymbalta] 30 mg PO DAILY 12/31/15 11/18/17 Ergocalciferol [Vitamin D2 50,000 unit PO FR 12/31/15 11/18/17 (DRISDOL)] metFORMIN HCL [Glucophage] 500 mg PO BID 01/08/16 11/18/17 Lisinopril-Hctz 20-25 mg 1 tab PO QAM 04/11/17 11/18/17 [Zestoretic 20-25] calcitrioL [Rocaltrol] 0.25 mcg PO DIRECTED 11/18/17 11/18/17 Previous Rx's Medication Instructions Recorded predniSONE 50 mg PO DAILY #3 tab 11/18/17 Allergies Allergy/AdvReac Type Severity Reaction Status Date / Time No Known Allergies Allergy Verified 01/05/20 17:40 Review of Systems ROS Other: All systems not noted in ROS Statement are negative. <Gin Lacey - Last Filed: 01/05/20 18:49> ROS Other: All systems not noted in ROS Statement are negative. <Debbi Ivory - Last Filed: 01/05/20 20:15> ROS Statement: Those systems with pertinent positive or pertinent negative responses have been documented in the HPI. Past Medical History Past Medical History: Diabetes Mellitus, Hyperlipidemia, Hypertension, Seizure Disorder Additional Past Medical History / Comment(s): uti, cerebral palsy on with rt side weakness. History of Any Multi-Drug Resistant Organisms: None Reported Past Surgical History: Orthopedic Surgery Additional Past Surgical History / Comment(s): wrist surgery, right ankle Past Anesthesia/Blood Transfusion Reactions: No Reported Reaction Past Psychological History: Anxiety, Depression Smoking Status: Never smoker Past Alcohol Use History: None Reported Past Drug Use History: None Reported - Past Family History Father Family Medical History: Dementia Additional Family Medical History / Comment(s): Parkinsons and Alzheimers Mother Family Medical History: Myocardial Infarction ([place]) <Gin Lacey - Last Filed: 01/05/20 18:49> General Exam Limitations: no limitations External exam: Present: normal external exam Speculum exam: Present: normal speculum exam. Absent: cervical discharge, vaginal bleeding, foreign body By manual exam: Present: normal by manual exam <Gin Lacey - Last Filed: 01/05/20 18:49> - General Exam Comments Initial Comments: GENERAL: Patient is well-developed and well-nourished. Patient is nontoxic and in no acute distress. HEAD: Atraumatic, normocephalic. EYES: Pupils equal round and reactive to light, extraocular movements intact, sclera anicteric, conjunctiva are normal. Eyelids were unremarkable. ENT: TMs normal, nares patent, oropharynx clear without exudates. Moist mucous membranes. NECK: Normal range of motion, supple without lymphadenopathy or JVD. LUNGS: Unlabored respirations. Breath sounds clear to auscultation bilaterally and equal. No wheezes rales or rhonchi. HEART: Regular rate and rhythm without murmurs, rubs or gallops. ABDOMEN: Soft, nontender, normoactive bowel sounds. No guarding, no rebound. No masses appreciated. MUSCULOSKELETAL: Patient has history of cerebral palsy, mostly affecting her right side extremities with some mild weakness, she is at baseline. Normal extremities with adequate strength and normal range of motion, no pitting or edema. No clubbing or cyanosis. NEUROLOGICAL: Patient is alert and oriented x 3. Motor and sensory are also intact. Cranial nerves II through XII grossly intact. Symmetrical smile. Normal speech, normal gait. PSYCH: Normal mood, normal affect. SKIN: Warm, Dry, normal turgor. Patient has mild skin irritation consistent with dermatitis on her lower abdomen underneath her abdominal fold. This does not appear to be actively infectious, it is not painful, no discharge. (Gin Lacey) Course Vital Signs 01/05/20 17:40 Temperature 98.6 F Pulse Rate 91 Respiratory 18 Rate Blood Pressure 145/83 O2 Sat by Pulse 98 Oximetry Medical Decision Making <Gin Lacey - Last Filed: 01/05/20 18:49> - Lab Data Result diagrams: 01/05/20 19:16 01/05/20 19:16 <Debbi Ivory - Last Filed: 01/05/20 20:15> - Medical Decision Making Patient is a 64-year-old female here with concerns of a vaginal odor, possible vaginal bleeding for one day. (Gin Lacey) Care was handed over to me by Lacy Lacey PA-c. Patient came in with complaints of vaginal odor and possible vaginal discharge. Pelvic exam was performed by Lacy who reported that there was some discharge and odor without evidence for bleeding at this time. Labs were reviewed, no evidence for UTI, but she did test positive for Trichomoniasis. I did discuss this result with her. She would like to be treated for other STIs as well so I added azithromycin and Rocephin. She is instructed to avoid sexual contact for the next 2 weeks. She is instructed to have all sexual partners treated for STI this well. She is instructed to follow-up with her primary care physician for recheck in 1-2 days. Return parameters discussed in detail per she verbalizes understanding and agrees with this plan. (Debbi Ivory) - Lab Data Lab Results 01/05/20 01/05/20 01/05/20 Range/Units 18:52 18:52 19:16 WBC 12.3 H (3.8-10.6) k/uL RBC 4.74 (3.80-5.40) m/uL Hgb 14.7 (11.4-16.0) gm/dL Hct 44.8 (34.0-46.0) % MCV 94.5 (80.0-100.0) fL MCH 31.1 (25.0-35.0) pg MCHC 32.9 (31.0-37.0) g/dL RDW 13.3 (11.5-15.5) % Plt Count 300 (150-450) k/uL MPV 7.0 Neutrophils % 69 % Lymphocytes % 21 % Monocytes % 5 % Eosinophils % 3 % Basophils % 1 % Neutrophils # 8.4 H (1.3-7.7) k/uL Lymphocytes # 2.6 (1.0-4.8) k/uL Monocytes # 0.6 (0-1.0) k/uL Eosinophils # 0.4 (0-0.7) k/uL Basophils # 0.1 (0-0.2) k/uL Sodium (137-145) mmol/L Potassium (3.5-5.1) mmol/L Chloride (98-107) mmol/L Carbon Dioxide (22-30) mmol/L Anion Gap mmol/L BUN (7-17) mg/dL Creatinine (0.52-1.04) mg/dL Est GFR (CKD-EPI)AfAm (>60 ml/min/1.73 sqM) Est GFR (CKD-EPI)NonAf (>60 ml/min/1.73 sqM) Glucose (74-99) mg/dL Calcium (8.4-10.2) mg/dL Total Bilirubin (0.2-1.3) mg/dL AST (14-36) U/L ALT (4-34) U/L Alkaline Phosphatase (38-126) U/L Total Protein (6.3-8.2) g/dL Albumin (3.5-5.0) g/dL Urine Color Yellow Urine Appearance Clear (Clear) Urine pH 5.5 (5.0-8.0) Ur Specific [place] 1.022 (1.001-1.035) Urine Protein Negative (Negative) Urine Glucose (UA) Negative (Negative) Urine Ketones Negative (Negative) Urine Blood Small H (Negative) Urine Nitrite Negative (Negative) Urine Bilirubin Negative (Negative) Urine Urobilinogen <2.0 (<2.0) mg/dL Ur Leukocyte Esterase Negative (Negative) Urine RBC 4 (0-5) /hpf Urine WBC 1 (0-5) /hpf Ur Squamous Epith Cells 1 (0-4) /hpf Hyaline Casts 3 H (0-2) /lpf Urine Mucus Rare H (None) /hpf Trichomonas Ag (Rapid) Positive H (Negative) 01/05/20 Range/Units 19:16 WBC (3.8-10.6) k/uL RBC (3.80-5.40) m/uL Hgb (11.4-16.0) gm/dL Hct (34.0-46.0) % MCV (80.0-100.0) fL MCH (25.0-35.0) pg MCHC (31.0-37.0) g/dL RDW (11.5-15.5) % Plt Count (150-450) k/uL MPV Neutrophils % % Lymphocytes % % Monocytes % % Eosinophils % % Basophils % % Neutrophils # (1.3-7.7) k/uL Lymphocytes # (1.0-4.8) k/uL Monocytes # (0-1.0) k/uL Eosinophils # (0-0.7) k/uL Basophils # (0-0.2) k/uL Sodium 139 (137-145) mmol/L Potassium 4.4 (3.5-5.1) mmol/L Chloride 106 (98-107) mmol/L Carbon Dioxide 26 (22-30) mmol/L Anion Gap 7 mmol/L BUN 22 H (7-17) mg/dL Creatinine 1.05 H (0.52-1.04) mg/dL Est GFR (CKD-EPI)AfAm 65 (>60 ml/min/1.73 sqM) Est GFR (CKD-EPI)NonAf 56 (>60 ml/min/1.73 sqM) Glucose 143 H (74-99) mg/dL Calcium 9.4 (8.4-10.2) mg/dL Total Bilirubin 0.4 (0.2-1.3) mg/dL AST 19 (14-36) U/L ALT 19 (4-34) U/L Alkaline Phosphatase 69 (38-126) U/L Total Protein 6.8 (6.3-8.2) g/dL Albumin 3.5 (3.5-5.0) g/dL Urine Color Urine Appearance (Clear) Urine pH (5.0-8.0) Ur Specific [place] (1.001-1.035) Urine Protein (Negative) Urine Glucose (UA) (Negative) Urine Ketones (Negative) Urine Blood (Negative) Urine Nitrite (Negative) Urine Bilirubin (Negative) Urine Urobilinogen (<2.0) mg/dL Ur Leukocyte Esterase (Negative) Urine RBC (0-5) /hpf Urine WBC (0-5) /hpf Ur Squamous Epith Cells (0-4) /hpf Hyaline Casts (0-2) /lpf Urine Mucus (None) /hpf Trichomonas Ag (Rapid) (Negative) Disposition <Gin Lacey - Last Filed: 01/05/20 18:49> Is patient prescribed a controlled substance at d/c from ED?: No Time of Disposition: 20:11 <Debbi Ivory - Last Filed: 01/05/20 20:15> Clinical Impression: Trichomonas vaginitis Disposition: HOME SELF-CARE Condition: Good Instructions (If sedation given, give patient instructions): Trichomoniasis (ED) Additional Instructions: No sexual activity for 2 weeks. You should have all sexual partners treated as well. Follow up with your primary care physician for recheck in 1-2 days. Return to the emergency department immediately for any new, worsening, or concerning symptoms Referrals: Tonya Wallace DO [Primary Care Provider] - 1-2 days
[2020-01-05 19:15] LABS: Appearance,Urine Clear (Clear); Bilirubin,Urine Negative (Negative); Blood,Urine Small (Negative); Color,Urine Yellow; Glucose,Urine (UA) Negative (Negative); Hyaline Casts,Urine 3 /lpf (0-2); Ketones,Urine Negative (Negative); Leukocyte Esterase,Urine Negative (Negative); Mucus,Urine Rare /hpf; Nitrite,Urine Negative (Negative); PH, Urine 5.5 (5.0-8.0); Protein,Urine Negative (Negative); RBC,Urine 4 /hpf (0-5); Specific Gravity,Urine 1.022 (1.001-1.035); Squamous Epithelial Cell,Urine 1 /hpf (0-4); Urobilinogen,Urine <2.0 mg/dL (<2.0); WBC,Urine 1 /hpf (0-5)
[2020-01-05 19:24] LABS: Basophils # (A) 0.1 k/uL (0-0.2); Basophils % (A) 1 %; Eosinophils # (A) 0.4 k/uL (0-0.7); Eosinophils % (A) 3 %; HCT 44.8 % (34.0-46.0); HGB 14.7 gm/dL (11.4-16.0); Lymphocytes # (A) 2.6 k/uL (1.0-4.8); Lymphocytes % (A) 21 %; MCH 31.1 pg (25.0-35.0); MCHC 32.9 g/dL (31.0-37.0); MCV 94.5 fL (80.0-100.0); Monocytes # (A) 0.6 k/uL (0-1.0); Monocytes % (A) 5 %; Neutrophils # (A) 8.4 k/uL (1.3-7.7); Neutrophils % (A) 69 %; Platelet Count 300 k/uL (150-450); RBC 4.74 m/uL (3.80-5.40); RDW 13.3 % (11.5-15.5); WBC 12.3 k/uL (3.8-10.6)
[2020-01-05 19:53] LABS: Albumin 3.5 g/dL (3.5-5.0); Calcium 9.4 mg/dL (8.4-10.2); Potassium 4.4 mmol/L (3.5-5.1); Total Bilirubin 0.4 mg/dL (0.2-1.3); Total Protein 6.8 g/dL (6.3-8.2)
[2020-01-05] MEDS ORDERED: metroNIDAZOLE 500 MG TAB PO STA (20:02)
[2020-01-05] MEDS ORDERED: ONDANSETRON ODT 4 MG TAB PO STA (20:03)
[2020-01-05] MEDS ORDERED: AZITHROMYCIN 500 MG TAB PO STA (20:09)
[2020-01-05] MEDS ORDERED: cefTRIAXone 250 MG VIAL IM STA (20:09)
[2020-01-05 20:56] VITALS: BP 139/77; PULSE 85; TEMP 98
[2020-01-08 13:51] LABS: C. trachomatis,PCR Negative (Neg,Equiv); Chlamydia trachomatis Source Cervix; N. gonorrhoeae,PCR Negative (Neg,Equiv); Neisseria Source Cervix
== END 2020-01-05 20:56 | disposition home or self-care (01) ==
LOC: EC 17:37
DX: A59.01 Trichomonal vulvovaginitis (principal); E11.9 Type 2 diabetes mellitus without complications; I10 Essential (primary) hypertension; E78.5 Hyperlipidemia, unspecified; G40.909 Epilepsy, unspecified, not intractable, without status epilepticus; G80.9 Cerebral palsy, unspecified; F41.9 Anxiety disorder, unspecified; F32.9 Major depressive disorder, single episode, unspecified; Z79.84 Long term (current) use of oral hypoglycemic drugs; Z79.899 Other long term (current) drug therapy
CPT/HCPCS: 99284 ×2; 96372 ×2; 36415; 80053; 85025; 81001; 87808; 87491; 87591; 87070; J0696

== ENCOUNTER → 2020-09-01 | Outpatient (CLI) | payer MEDICARE, OTHER ==
--- NOTE | 2020-09-04 14:30 | MM ---
Reason for exam: screening (asymptomatic). Last mammogram was performed 2 years and 10 months ago. History: Patient is postmenopausal. Physical Findings: A clinical breast exam by your physician is recommended on an annual basis and results should be correlated with mammographic findings. MG 3D Screening Mammo W/Cad Bilateral CC and MLO view(s) were taken. XCCL view(s) were taken of the right breast. Prior study comparison: October 19, 2017, bilateral MG 3d screening mammo w/cad. September 07, 2016, bilateral MG 3d screening mammo w/cad. There are scattered fibroglandular densities. No significant changes when compared with prior studies. ASSESSMENT: Benign, BI-RAD 2 RECOMMENDATION: Routine screening mammogram of both breasts in 1 year.
== END | disposition home or self-care (01) ==
LOC: RADMAMWWP 09:26
PROVIDERS: ATTEND Family Medicine
DX: Z12.31 Encounter for screening mammogram for malignant neoplasm of breast (principal); Z78.0 Asymptomatic menopausal state
CPT/HCPCS: 77063; 77067

== ENCOUNTER 2020-11-19 14:24 | Emergency (ER) | payer MEDICARE, OTHER ==
[2020-11-19 14:33] VITALS: TEMP 98.1
[2020-11-19] MEDS ORDERED: SODIUM CHLORIDE 0.9% 1,000 ML IV STA (15:02)
--- NOTE | 2020-11-19 15:04 | ED ---
General Adult HPI - General Chief complaint: Vaginal Bleeding Stated complaint: Vaginal Bleeding Time Seen by Provider: 11/19/20 14:48 Source: patient, EMS Mode of arrival: EMS Limitations: no limitations - History of Present Illness Initial comments: 65-year-old female with a past medical history of diabetes mellitus, hyperlipidemia, hypertension, seizure disorder, UTI presents to the emergency room for a chief complaint of blood in urine. Patient states this morning she started to have blood in urine. States that with this she has had urinary fr equency. States it is painful with urination as well. Patient admits to slight generalized abdominal pain. Denies any back or flank pain. Denies fevers or chills. Patient denies taking blood thinners.Patient has no other complaints at this time including shortness of breath, chest pain, nausea or vomiting, headache, or visual changes. - Related Data Home Medications Medication Instructions Recorded Confirmed DULoxetine HCL [Cymbalta] 30 mg PO DAILY 12/31/15 11/18/17 Ergocalciferol [Vitamin D2 50,000 unit PO FR 12/31/15 11/18/17 (DRISDOL)] metFORMIN HCL [Glucophage] 500 mg PO BID 01/08/16 11/18/17 Lisinopril-Hctz 20-25 mg 1 tab PO QAM 04/11/17 11/18/17 [Zestoretic 20-25] calcitrioL [Rocaltrol] 0.25 mcg PO DIRECTED 11/18/17 11/18/17 Previous Rx's Medication Instructions Recorded predniSONE 50 mg PO DAILY #3 tab 11/18/17 Cephalexin [Keflex] 500 mg PO Q6HR 10 Days #40 cap 11/19/20 Allergies Allergy/AdvReac Type Severity Reaction Status Date / Time No Known Allergies Allergy Verified 11/19/20 14:33 Review of Systems ROS Statement: Those systems with pertinent positive or pertinent negative responses have been documented in the HPI. ROS Other: All systems not noted in ROS Statement are negative. Past Medical History Past Medical History: Diabetes Mellitus, Hyperlipidemia, Hypertension, Seizure Disorder Additional Past Medical History / Comment(s): uti, cerebral palsy on with rt side weakness. History of Any Multi-Drug Resistant Organisms: None Reported Past Surgical History: Orthopedic Surgery Additional Past Surgical History / Comment(s): wrist surgery, right ankle Past Anesthesia/Blood Transfusion Reactions: No Reported Reaction Past Psychological History: No Psychological Hx Reported Smoking Status: Never smoker Past Alcohol Use History: None Reported Past Drug Use History: None Reported - Past Family History Father Family Medical History: Dementia Additional Family Medical History / Comment(s): Parkinsons and Alzheimers Mother Family Medical History: Myocardial Infarction (ME) General Exam Limitations: no limitations General appearance: alert, in no apparent distress Head exam: Present: atraumatic Eye exam: Present: normal appearance, PERRL, EOMI. Absent: scleral icterus, conjunctival injection ENT exam: Present: normal exam, mucous membranes moist Neck exam: Present: normal inspection, full ROM. Absent: tenderness Respiratory exam: Present: normal lung sounds bilaterally. Absent: respiratory distress, wheezes Cardiovascular Exam: Present: regular rate, normal rhythm, normal heart sounds GI/Abdominal exam: Present: soft, normal bowel sounds. Absent: distended, tenderness Neurological exam: Present: alert Course Vital Signs 11/19/20 11/19/20 14:26 16:33 Temperature 98.1 F Pulse Rate 73 77 Respiratory 18 18 Rate Blood Pressure 132/74 131/82 O2 Sat by Pulse 96 98 Oximetry Medical Decision Making - Medical Decision Making Vitals are stable. Patient is well-appearing. No significant abdominal tenderness. CBC does show leukocytosis of 11.2. CMP is pertinent for dehydration with the V1 of 19. Lactate acid of 2.4 is likely related to dehydration. Vitals do not meet sepsis criteria. Urinalysis does show evidence of infection with many bacteria and 182 red and white cells as well as many white blood cell clumps. CT was obtained which showed possible fibroid uterus however no kidney lesions. At this time patient can be treated with Rocephin 1 time dose here in the ER and [facility] outpatient for hemorrhagic cystitis. I did review previous urinalysis reports and I do not see any history of resistant microbiology. Patient will need to follow up with her doctor to ensure resolution. She will return here for any worsening symptoms. - Lab Data Result diagrams: 11/19/20 15:24 11/19/20 15:24 Lab Results 11/19/20 11/19/20 11/19/20 Range/Units 15:24 15:24 15:24 WBC 11.2 H (3.8-10.6) k/uL RBC 4.65 (3.80-5.40) m/uL Hgb 15.3 (11.4-16.0) gm/dL Hct 44.8 (34.0-46.0) % MCV 96.2 (80.0-100.0) fL MCH 32.8 (25.0-35.0) pg MCHC 34.1 (31.0-37.0) g/dL RDW 12.9 (11.5-15.5) % Plt Count 283 (150-450) k/uL MPV 7.9 Neutrophils % 71 % Lymphocytes % 20 % Monocytes % 5 % Eosinophils % 2 % Basophils % 1 % Neutrophils # 8.0 H (1.3-7.7) k/uL Lymphocytes # 2.3 (1.0-4.8) k/uL Monocytes # 0.5 (0-1.0) k/uL Eosinophils # 0.2 (0-0.7) k/uL Basophils # 0.1 (0-0.2) k/uL Sodium 135 L (137-145) mmol/L Potassium 4.0 (3.5-5.1) mmol/L Chloride 100 (98-107) mmol/L Carbon Dioxide 25 (22-30) mmol/L Anion Gap 10 mmol/L BUN 19 H (7-17) mg/dL Creatinine 0.94 (0.52-1.04) mg/dL Est GFR (CKD-EPI)AfAm 74 (>60 ml/min/1.73 sqM) Est GFR (CKD-EPI)NonAf 64 (>60 ml/min/1.73 sqM) Glucose 228 H (74-99) mg/dL Plasma Lactic Acid Thien (0.7-2.0) mmol/L Calcium 9.6 (8.4-10.2) mg/dL Total Bilirubin 0.6 (0.2-1.3) mg/dL AST 22 (14-36) U/L ALT 23 (4-34) U/L Alkaline Phosphatase 96 (38-126) U/L Total Protein 7.0 (6.3-8.2) g/dL Albumin 3.8 (3.5-5.0) g/dL Urine Color Red Urine Appearance Bloody H (Clear) Urine RBC >182 H (0-5) /hpf Urine WBC >182 H (0-5) /hpf Urine WBC Clumps Many H (None) /hpf Ur Squamous Epith Cells 55 H (0-4) /hpf Urine Bacteria Many H (None) /hpf Urine Mucus Many H (None) /hpf 11/19/20 Range/Units 15:24 WBC (3.8-10.6) k/uL RBC (3.80-5.40) m/uL Hgb (11.4-16.0) gm/dL Hct (34.0-46.0) % MCV (80.0-100.0) fL MCH (25.0-35.0) pg MCHC (31.0-37.0) g/dL RDW (11.5-15.5) % Plt Count (150-450) k/uL MPV Neutrophils % % Lymphocytes % % Monocytes % % Eosinophils % % Basophils % % Neutrophils # (1.3-7.7) k/uL Lymphocytes # (1.0-4.8) k/uL Monocytes # (0-1.0) k/uL Eosinophils # (0-0.7) k/uL Basophils # (0-0.2) k/uL Sodium (137-145) mmol/L Potassium (3.5-5.1) mmol/L Chloride (98-107) mmol/L Carbon Dioxide (22-30) mmol/L Anion Gap mmol/L BUN (7-17) mg/dL Creatinine (0.52-1.04) mg/dL Est GFR (CKD-EPI)AfAm (>60 ml/min/1.73 sqM) Est GFR (CKD-EPI)NonAf (>60 ml/min/1.73 sqM) Glucose (74-99) mg/dL Plasma Lactic Acid Thien 2.4 H* (0.7-2.0) mmol/L Calcium (8.4-10.2) mg/dL Total Bilirubin (0.2-1.3) mg/dL AST (14-36) U/L ALT (4-34) U/L Alkaline Phosphatase (38-126) U/L Total Protein (6.3-8.2) g/dL Albumin (3.5-5.0) g/dL Urine Color Urine Appearance (Clear) Urine RBC (0-5) /hpf Urine WBC (0-5) /hpf Urine WBC Clumps (None) /hpf Ur Squamous Epith Cells (0-4) /hpf Urine Bacteria (None) /hpf Urine Mucus (None) /hpf Disposition Clinical Impression: Cystitis Disposition: HOME SELF-CARE Condition: Good Instructions (If sedation given, give patient instructions): Urinary Tract Infection in Women (ED) Additional Instructions: Please drink plenty of fluids. Take antibiotic as directed. Follow-up with primary care to ensure resolution. Return to the emergency room for any worsening symptoms. Prescriptions: Cephalexin [Keflex] 500 mg PO Q6HR 10 Days #40 cap Is patient prescribed a controlled substance at d/c from ED?: No Referrals: Nicolasa Oh PAC [REFERRING] - 1-2 days Time of Disposition: 17:09
[2020-11-19 15:22] VITALS: RESP 18
[2020-11-19 15:37] LABS: Basophils # (A) 0.1 k/uL (0-0.2); Basophils % (A) 1 %; Eosinophils # (A) 0.2 k/uL (0-0.7); Eosinophils % (A) 2 %; HCT 44.8 % (34.0-46.0); HGB 15.3 gm/dL (11.4-16.0); Lymphocytes # (A) 2.3 k/uL (1.0-4.8); Lymphocytes % (A) 20 %; MCH 32.8 pg (25.0-35.0); MCHC 34.1 g/dL (31.0-37.0); MCV 96.2 fL (80.0-100.0); Mean Platelet Volume 7.9; Monocytes # (A) 0.5 k/uL (0-1.0); Monocytes % (A) 5 %; Neutrophils % (A) 71 %; Platelet Count 283 k/uL (150-450); RBC 4.65 m/uL (3.80-5.40); RDW 12.9 % (11.5-15.5); WBC 11.2 k/uL (3.8-10.6)
[2020-11-19 15:44] LABS: Appearance,Urine Bloody (Clear); Bacteria,Urine Many /hpf; Mucus,Urine Many /hpf; RBC,Urine >182 /hpf (0-5); Squamous Epithelial Cell,Urine 55 /hpf (0-4); WBC,Urine >182 /hpf (0-5)
[2020-11-19 15:45] LABS: Color,Urine Red
[2020-11-19 15:47] LABS: Albumin 3.8 g/dL (3.5-5.0); Calcium 9.6 mg/dL (8.4-10.2); Total Bilirubin 0.6 mg/dL (0.2-1.3)
--- NOTE | 2020-11-19 16:19 | CT ---
EXAMINATION TYPE: CT abdomen pelvis wo con DATE OF EXAM: 11/19/2020 COMPARISON: None HISTORY: Gross hematuria. Urinary frequency. CT DLP: 1637 mGycm Automated exposure control for dose reduction was used. TECHNIQUE: Helical acquisition of images from the lung bases through the pelvis. FINDINGS: Lack of intravenous contrast compromises sensitivity of the exam. Umbilical hernia contains fat. Motion is present. LUNG BASES: No significant abnormality is appreciated. AORTA: No significant abnormality is appreciataed. LIVER/GB: Liver shows low attenuation likely due to hepatic steatosis, liver is enlarged, gallbladder is distended PANCREAS: No significant abnormality is seen. SPLEEN: No significant abnormality is seen. ADRENALS: No significant abnormality is seen. KIDNEYS: At the level of the lower pole right kidney there is an exophytic cystic focus measuring 2.6 cm likely representing a simple cyst, there is no hydronephrosis or nephrolithiasis bilaterally. Gwen dent ureteral calculus. REPRODUCTIVE ORGANS: Uterus appears somewhat bulky. URINARY BLADDER: No significant abnormality is seen. BOWEL: Diverticular changes associated with the colon, the appendix shows no inflammatory change FREE AIR: No Free Air is visible. ASCITES: None visible. PELVIC ADENOPATHY: None visualized. RETROPERITONEAL ADENOPATHY: No Retroperitoneal Adenopathy visible. OSSEOUS STRUCTURES: Degenerative disc disease, facet arthropathy changes noted within the lumbar spi ne. IMPRESSION: NONCONTRAST EXAM. THERE IS MOTION ON EXAM. CORRELATE FOR POSSIBLE FIBROID UTERUS, THERE IS HEPATIC ST EATOSIS, HEPATOMEGALY. DIVERTICULOSIS..
[2020-11-19 16:36] VITALS: BP 131/82; PULSE 77
[2020-11-19] MEDS ORDERED: cefTRIAXone IN SWFI 1,000 MG/10 ML SYRINGE IVP STA (17:06)
== END 2020-11-19 17:29 | disposition home or self-care (01) ==
LOC: EC 14:24
DX: N30.91 Cystitis, unspecified with hematuria (principal); N93.9 Abnormal uterine and vaginal bleeding, unspecified; I10 Essential (primary) hypertension; E78.5 Hyperlipidemia, unspecified; E11.9 Type 2 diabetes mellitus without complications; G40.909 Epilepsy, unspecified, not intractable, without status epilepticus; Z87.440 Personal history of urinary (tract) infections; Z79.52 Long term (current) use of systemic steroids; Z79.84 Long term (current) use of oral hypoglycemic drugs
CPT/HCPCS: 36415; 80053; 83605; 85025; 81001; 87086; 74176; 99284; 96374; 96361; J0696; 96375

== ENCOUNTER 2021-06-07 10:00 | Emergency (ER) | payer MEDICARE, OTHER ==
[2021-06-07 10:11] VITALS: RESP 18; TEMP 97.4
[2021-06-07] MEDS ORDERED: SODIUM CHLORIDE 0.9% 1,000 ML IV STA (10:43)
[2021-06-07 11:10] LABS: Basophils # (A) 0.1 k/uL (0-0.2); Basophils % (A) 1 %; Eosinophils # (A) 0.1 k/uL (0-0.7); Eosinophils % (A) 1 %; HCT 48.4 % (34.0-46.0); HGB 15.3 gm/dL (11.4-16.0); Lymphocytes # (A) 1.8 k/uL (1.0-4.8); Lymphocytes % (A) 13 %; MCHC 31.6 g/dL (31.0-37.0); MCV 98.2 fL (80.0-100.0); Mean Platelet Volume 7.5; Monocytes # (A) 0.5 k/uL (0-1.0); Monocytes % (A) 4 %; Neutrophils % (A) 81 %; Platelet Count 306 k/uL (150-450); RBC 4.93 m/uL (3.80-5.40); RDW 12.5 % (11.5-15.5); WBC 13.6 k/uL (3.8-10.6)
[2021-06-07 11:22] LABS: Albumin 3.8 g/dL (3.5-5.0); Calcium 9.2 mg/dL (8.4-10.2); Total Bilirubin 0.7 mg/dL (0.2-1.3); Total Protein 7.2 g/dL (6.3-8.2)
[2021-06-07] MEDS ORDERED: SODIUM CHLORIDE 0.9% 1,000 ML IV ONE (11:34)
--- NOTE | 2021-06-07 11:40 | XR ---
EXAMINATION TYPE: XR KUB DATE OF EXAM: 06/07/2021 COMPARISON: None INDICATION: Abdomen pain, diarrhea TECHNIQUE: Single view abdomen frontal projection FINDINGS: No significant bowel gas is present. No air-fluid levels or differential air-fluid levels are present . No free air is under the diaphragm. No mass effect is evident. Psoas margins are normal. No organomegaly is present. IMPRESSION: 1. Nonspecific abdomen. No suspicious acute radiographic changes.
--- NOTE | 2021-06-07 12:01 | ED ---
General Adult HPI - General Chief complaint: Nausea/Vomiting/Diarrhea Stated complaint: diarrhea Time Seen by Provider: 06/07/21 10:17 Source: patient, RN notes reviewed Mode of arrival: ambulatory Limitations: no limitations - History of Present Illness Initial comments: This a 65-year-old female presents emergency Department chief complaint of abdominal pain, diarrhea. She's been having increasing abdominal pain states been gone for long period time last 2 days she's had severe symptoms. No fevers or chills she is a known diabetic states her blood sugars running high. Patient states that she's had nausea without vomiting no dysuria no hematuria she states she's not been any recent antibiotics no recent traveling no history of C. diff. Patient states she just has watery diarrhea. Patient states prior to that she was constipated and was taking some stool softeners, laxatives. - Related Data Home Medications Medication Instructions Recorded Confirmed DULoxetine HCL [Cymbalta] 30 mg PO DAILY 12/31/15 11/18/17 Ergocalciferol [Vitamin D2 50,000 unit PO FR 12/31/15 11/18/17 (DRISDOL)] metFORMIN HCL [Glucophage] 500 mg PO BID 01/08/16 11/18/17 Lisinopril-Hctz 20-25 mg 1 tab PO QAM 04/11/17 11/18/17 [Zestoretic 20-25] calcitrioL [Rocaltrol] 0.25 mcg PO DIRECTED 11/18/17 11/18/17 Previous Rx's Medication Instructions Recorded predniSONE 50 mg PO DAILY #3 tab 11/18/17 Cephalexin [Keflex] 500 mg PO Q6HR 10 Days #40 cap 11/19/20 Allergies Allergy/AdvReac Type Severity Reaction Status Date / Time No Known Allergies Allergy Verified 06/07/21 10:11 Review of Systems ROS Statement: Those systems with pertinent positive or pertinent negative responses have been documented in the HPI. ROS Other: All systems not noted in ROS Statement are negative. Past Medical History Past Medical History: Diabetes Mellitus, Hyperlipidemia, Hypertension, Seizure Disorder Additional Past Medical History / Comment(s): uti, cerebral palsy on with rt side weakness. History of Any Multi-Drug Resistant Organisms: None Reported Past Surgical History: Orthopedic Surgery Additional Past Surgical History / Comment(s): wrist surgery, right ankle Past Anesthesia/Blood Transfusion Reactions: No Reported Reaction Past Psychological History: No Psychological Hx Reported Smoking Status: Never smoker Past Alcohol Use History: None Reported Past Drug Use History: None Reported - Past Family History Father Family Medical History: Dementia Additional Family Medical History / Comment(s): Parkinsons and Alzheimers Mother Family Medical History: Myocardial Infarction (MS) General Exam Limitations: no limitations General appearance: alert, in no apparent distress Head exam: Present: atraumatic, normocephalic, normal inspection Eye exam: Present: normal appearance, PERRL, EOMI. Absent: scleral icterus, conjunctival injection, periorbital swelling Neck exam: Present: normal inspection. Absent: tenderness, meningismus, lymphadenopathy Respiratory exam: Present: normal lung sounds bilaterally. Absent: respiratory distress, wheezes, rales, rhonchi, stridor Cardiovascular Exam: Present: regular rate, normal rhythm, normal heart sounds. Absent: systolic murmur, diastolic murmur, rubs, gallop, clicks GI/Abdominal exam: Present: soft, tenderness, normal bowel sounds. Absent: distended, guarding, rebound, rigid Back exam: Absent: CVA tenderness (R), CVA tenderness (L) Neurological exam: Present: alert Skin exam: Present: warm, dry, intact, normal color. Absent: rash Course Vital Signs 06/07/21 06/07/21 10:06 12:32 Temperature 97.4 F L Pulse Rate 107 H 76 Respiratory 18 18 Rate Blood Pressure 132/82 134/71 O2 Sat by Pulse 94 L 96 Oximetry Medical Decision Making - Medical Decision Making CT shows nonspecific findings. Patient has bulky uterus on CT will follow-up outpatient for ultrasound and further management. He does have some diverticulosis no evidence diverticulitis. Patient will be discharged in stable condition and return parameters were discussed. - Lab Data Result diagrams: 06/07/21 11:06/07/21 11: Lab Results 06/07/21 06/07/21 06/07/21 Range/Units 11:01 11: 11: WBC 13.6 H (3.8-10.6) k/uL RBC 4.93 (3.80-5.40) m/uL Hgb 15.3 (11.4-16.0) gm/dL Hct 48.4 H (34.0-46.0) % MCV 98.2 (80.0-100.0) fL MCH 31.0 (25.0-35.0) pg MCHC 31.6 (31.0-37.0) g/dL RDW 12.5 (11.5-15.5) % Plt Count 306 (150-450) k/uL MPV 7.5 Neutrophils % 81 % Lymphocytes % 13 % Monocytes % 4 % Eosinophils % 1 % Basophils % 1 % Neutrophils # 11.0 H (1.3-7.7) k/uL Lymphocytes # 1.8 (1.0-4.8) k/uL Monocytes # 0.5 (0-1.0) k/uL Eosinophils # 0.1 (0-0.7) k/uL Basophils # 0.1 (0-0.2) k/uL Sodium 138 (137-145) mmol/L Potassium 4.0 (3.5-5.1) mmol/L Chloride 101 (98-107) mmol/L Carbon Dioxide 25 (22-30) mmol/L Anion Gap 12 mmol/L BUN 19 H (7-17) mg/dL Creatinine 1.07 H (0.52-1.04) mg/dL Est GFR (CKD-EPI)AfAm 63 (>60 ml/min/1.73 sqM) Est GFR (CKD-EPI)NonAf 55 (>60 ml/min/1.73 sqM) Glucose 259 H (74-99) mg/dL Lactic Ac Sepsis Rflx Plasma Lactic Acid Thien 4.1 H* (0.7-2.0) mmol/L Calcium 9.2 (8.4-10.2) mg/dL Total Bilirubin 0.7 (0.2-1.3) mg/dL AST 24 (14-36) U/L ALT 23 (4-34) U/L Alkaline Phosphatase 97 (38-126) U/L Total Protein 7.2 (6.3-8.2) g/dL Albumin 3.8 (3.5-5.0) g/dL Amylase 47 (30-110) U/L Lipase 100 (23-300) U/L Urine Color Urine Appearance (Clear) Urine pH (5.0-8.0) Ur Specific [place] (1.001-1.035) Urine Protein (Negative) Urine Glucose (UA) (Negative) Urine Ketones (Negative) Urine Blood (Negative) Urine Nitrite (Negative) Urine Bilirubin (Negative) Urine Urobilinogen (<2.0) mg/dL Ur Leukocyte Esterase (Negative) Urine RBC (0-5) /hpf Urine WBC (0-5) /hpf Ur Squamous Epith Cells (0-4) /hpf Urine Bacteria (None) /hpf Urine Mucus (None) /hpf 06/07/21 06/07/21 06/07/21 Range/Units 11:33 13:36 14:15 WBC (3.8-10.6) k/uL RBC (3.80-5.40) m/uL Hgb (11.4-16.0) gm/dL Hct (34.0-46.0) % MCV (80.0-100.0) fL MCH (25.0-35.0) pg MCHC (31.0-37.0) g/dL RDW (11.5-15.5) % Plt Count (150-450) k/uL MPV Neutrophils % % Lymphocytes % % Monocytes % % Eosinophils % % Basophils % % Neutrophils # (1.3-7.7) k/uL Lymphocytes # (1.0-4.8) k/uL Monocytes # (0-1.0) k/uL Eosinophils # (0-0.7) k/uL Basophils # (0-0.2) k/uL Sodium (137-145) mmol/L Potassium (3.5-5.1) mmol/L Chloride (98-107) mmol/L Carbon Dioxide (22-30) mmol/L Anion Gap mmol/L BUN (7-17) mg/dL Creatinine (0.52-1.04) mg/dL Est GFR (CKD-EPI)AfAm (>60 ml/min/1.73 sqM) Est GFR (CKD-EPI)NonAf (>60 ml/min/1.73 sqM) Glucose (74-99) mg/dL Lactic Ac Sepsis Rflx Y Plasma Lactic Acid Thien 3.3 H* (0.7-2.0) mmol/L Calcium (8.4-10.2) mg/dL Total Bilirubin (0.2-1.3) mg/dL AST (14-36) U/L ALT (4-34) U/L Alkaline Phosphatase (38-126) U/L Total Protein (6.3-8.2) g/dL Albumin (3.5-5.0) g/dL Amylase (30-110) U/L Lipase (23-300) U/L Urine Color Light Yellow Urine Appearance Clear (Clear) Urine pH 5.5 (5.0-8.0) Ur Specific [place] 1.047 H (1.001-1.035) Urine Protein Negative (Negative) Urine Glucose (UA) 2+ H (Negative) Urine Ketones Negative (Negative) Urine Blood Negative (Negative) Urine Nitrite Negative (Negative) Urine Bilirubin Negative (Negative) Urine Urobilinogen <2.0 (<2.0) mg/dL Ur Leukocyte Esterase Trace H (Negative) Urine RBC 3 (0-5) /hpf Urine WBC 3 (0-5) /hpf Ur Squamous Epith Cells 9 H (0-4) /hpf Urine Bacteria Rare H (None) /hpf Urine Mucus Rare H (None) /hpf Disposition Clinical Impression: Diarrhea, Abdominal pain Disposition: HOME SELF-CARE Condition: Stable Instructions (If sedation given, give patient instructions): Abdominal Pain (ED), Acute Diarrhea (ED) Additional Instructions: Please return to the Emergency Department if symptoms worsen or any other concerns. Is patient prescribed a controlled substance at d/c from ED?: No Referrals: Tonya Wallace DO [Primary Care Provider] - 1-2 days Time of Disposition: 14:46
--- NOTE | 2021-06-07 12:16 | CT ---
EXAMINATION TYPE: CT abdomen pelvis w con DATE OF EXAM: 06/07/2021 COMPARISON: None INDICATION: diarrhea DLP: 1982.7 mGycm, Automated exposure control for dose reduction was used. CONTRAST: 80ml mL of Isovue 300. Study performed without Oral Contrast TECHNIQUE: Axial images were obtained from above the diaphragm to the pubic rami in the axial plane a t 5 mm thick sections. Reconstructed images are reviewed on the computer in the coronal plane. FINDINGS: Limited CT sections are obtained the lung bases. The lung bases are clear. CT ABDOMEN: There is a periumbilical hernia containing mesenteric fat. The opening measures approxima tely 0.9 cm. Liver: There is mild fatty infiltration to the liver. No discrete masses are evident. Spleen: Normal Pancreas: Normal Adrenal glands: The adrenal glands are normal. Gallbladder: Distended. Consider additional evaluation with ultrasound. Kidneys: No masses are evident. No hydronephrosis is present. There is a 2.3 cm cyst at the inferio r pole right kidney. Delayed images were obtained through the kidneys, which remain unremarkable. Aorta: Vascular calcification is within the aorta. Inferior vena cava: Normal. CT PELVIS: Loops of bowel without contrast within the abdomen and pelvis appear unremarkable. Limits few diverti culi within the descending colon and sigmoid colon without adjacent inflammatory change to suggest ac enterprise diverticulitis. Appendix: Normal as visualized. Urinary bladder: Normal. Genitourinary structures: Uterus appears prominent. There appears to be a thick endometrium. Follow-u p with ultrasound is recommended. Adnexa appear normal. Osseous structures: No suspicious lytic or sclerotic lesions. IMPRESSIONS: 1. No suspicious acute changes CT abdomen and pelvis. 2. Thickened endometrium with a prominent uterus. Additional workup with ultrasound is recommended. 3. Mild diverticulosis without acute diverticulitis. 4. Inferior pole right renal cyst. 5. Distended gallbladder, consider follow-up with ultrasound. 6. Mild fatty infiltration of the liver. 7. Periumbilical mesenteric fat-containing anterior wall hernia.
[2021-06-07 13:54] LABS: Appearance,Urine Clear (Clear); Bacteria,Urine Rare /hpf; Bilirubin,Urine Negative (Negative); Blood,Urine Negative (Negative); Color,Urine Light Yellow; Glucose,Urine (UA) 2+ (Negative); Ketones,Urine Negative (Negative); Leukocyte Esterase,Urine Trace (Negative); Mucus,Urine Rare /hpf; Nitrite,Urine Negative (Negative); PH, Urine 5.5 (5.0-8.0); Protein,Urine Negative (Negative); RBC,Urine 3 /hpf (0-5); Squamous Epithelial Cell,Urine 9 /hpf (0-4); Urobilinogen,Urine <2.0 mg/dL (<2.0); WBC,Urine 3 /hpf (0-5)
[2021-06-07 14:14] LABS: Specific Gravity,Urine 1.047 (1.001-1.035)
[2021-06-07 15:25] VITALS: BP 140/68; PULSE 79
== END 2021-06-07 15:25 | disposition home or self-care (01) ==
LOC: EC 10:00
DX: R19.7 Diarrhea, unspecified (principal); R10.9 Unspecified abdominal pain; E11.9 Type 2 diabetes mellitus without complications; I10 Essential (primary) hypertension; Z82.49 Family history of ischemic heart disease and other diseases of the circulatory system
CPT/HCPCS: 36415; 80053; 82150; 83605; 83690; 85025; 81001; 74018; 74177; 99284; 96360; 96361; Q9967

== ENCOUNTER 2021-08-06 09:52 | Inpatient (IN) | payer MEDICARE, OTHER ==
--- NOTE | 2021-08-06 10:16 | ED ---
General Adult HPI - General Chief complaint: Weakness Stated complaint: Dizziness/falls Time Seen by Provider: 08/06/21 10:04 Source: patient, EMS Mode of arrival: EMS Limitations: no limitations - History of Present Illness Initial comments: Patient is a pleasant 66-year-old female presents to the emergency room with worsening generalized weakness resulting in 2 falls over the last 48 hours. She denies any head trauma from the fall but did land on her right leg causing some pain and swelling to her right knee and right lower limb. She has a past medical history significant for cerebral palsy consequently she has a chronic right-sided weakness with right hand contracture along with altered speech and slight right-sided facial droop. She reports that the symptoms are stable and at their baseline. She denies any other focal neurological deficits. She is complaining of generalized dizziness worse when standing but denies any at this time. She is a diabetic and states that she was recently transitioned over to insulin she reports that her blood sugar this morning was good at 146. She denies any known episodes of hypoglycemia since starting her insulin. She does note some odor to her urine and increase in urinary frequency in addition to hematuria that has been ongoing for several months. She states that she has been taking Azo [id number] for urinary tract symptoms along with yeast infection symptoms for some time. She also complains of a chronic yeast infection to her right groin/pannus area that she has difficulty cleaning due to her severe cerebral palsy and weight. She denies any fevers, chills, headaches, blurred or double vision, tinnitus, ear pain, abdominal pain nausea or vomiting. - Related Data Home Medications Medication Instructions Recorded Confirmed DULoxetine HCL [Cymbalta] 30 mg PO DAILY 12/31/15 08/06/21 Atorvastatin [Lipitor] 10 mg PO DAILY 08/06/21 08/06/21 Lisinopril-Hctz 10-12.5 mg 1 tab PO DAILY 08/06/21 08/06/21 [Zestoretic 10-12.5] Semaglutide [Ozempic] 0.25 mg SQ TU 08/06/21 08/06/21 allopurinoL [Zyloprim] 100 mg PO DAILY 08/06/21 08/06/21 metFORMIN HCL 1,000 mg PO DAILY 08/06/21 08/06/21 Allergies Allergy/AdvReac Type Severity Reaction Status Date / Time No Known Allergies Allergy Verified 08/06/21 11:32 Review of Systems ROS Statement: Those systems with pertinent positive or pertinent negative responses have been documented in the HPI. ROS Other: All systems not noted in ROS Statement are negative. Past Medical History Past Medical History: Diabetes Mellitus, Hyperlipidemia, Hypertension, Seizure Disorder Additional Past Medical History / Comment(s): uti, cerebral palsy on with rt side weakness. History of Any Multi-Drug Resistant Organisms: None Reported Past Surgical History: Orthopedic Surgery Additional Past Surgical History / Comment(s): wrist surgery, right ankle Past Anesthesia/Blood Transfusion Reactions: No Reported Reaction Past Psychological History: No Psychological Hx Reported Smoking Status: Never smoker Past Alcohol Use History: None Reported Past Drug Use History: None Reported - Past Family History Father Family Medical History: Dementia Additional Family Medical History / Comment(s): Parkinsons and Alzheimers Mother Family Medical History: Myocardial Infarction ([place]) General Exam Limitations: no limitations General appearance: alert, in no apparent distress Head exam: Present: atraumatic, normocephalic, normal inspection Eye exam: Present: normal appearance, PERRL, EOMI. Absent: scleral icterus, conjunctival injection, periorbital swelling ENT exam: Present: mucous membranes moist Neck exam: Present: normal inspection Respiratory exam: Present: normal lung sounds bilaterally. Absent: respiratory distress, wheezes, rales, rhonchi, stridor Cardiovascular Exam: Present: regular rate, normal rhythm, normal heart sounds. Absent: systolic murmur, diastolic murmur, rubs, gallop, clicks GI/Abdominal exam: Present: soft, normal bowel sounds. Absent: distended, tenderness Right General: Present: other Right Knee exam: Present: tenderness, swelling, ecchymosis Lower Leg exam: Present: tenderness, swelling, ecchymosis Neurovascular tendon exam: Present: no vascular compromise Back exam: Present: normal inspection Neurological exam: Present: alert, oriented X3, CN II-XII intact Expanded Cranial nerves: Facial Palsy with Forehead Movement: Abnormal Right (chronic) Motor strength exam: RUE: 4 (chronic), RLE: 4 (chronic) Psychiatric exam: Present: normal affect, normal mood Skin exam: Present: rash (Candidiasis right groin and pannus) Course Vital Signs 08/06/21 08/06/21 08/06/21 09:57 11:08 12:40 Temperature 98.7 F Pulse Rate 90 91 Respiratory 18 18 Rate Blood Pressure 99/57 119/68 Blood Pressure 98/61 [Right Arm Sitting] Blood Pressure 101/76 [Right Arm Standing] Blood Pressure 119/58 [Right Arm Supine] O2 Sat by Pulse 95 95 Oximetry Medical Decision Making - Medical Decision Making Due to generalized weakness and fall will check CT of the head without contrast. Will check x-rays extremities were trauma occurred no evidence. No evidence of ear infection. Will check CBC and CMP for dehydration and infection. Will check urinalysis as well and monitor. CT of the head negative for acute changes. X-ray of right knee and tib-fib negative for fracture or dislocation. Mild leukocytosis noted with HPI. Will give normal saline fluid bolus and monitor. Due to cerebral palsy and generalized weakness will defer orthostatic blood pressures at this time. IV fluid bolus given. Still with mild orthostasis along dizziness upon standing. Will admit for acute kidney injury and UTI treatment. Case discussed with Dr. Yugn ordonez along with excepting a machine provider Dr. Chon Garcia. - Lab Data Result diagrams: 08/06/21 10:28 08/06/21 10:28 Lab Results 08/06/21 08/06/21 08/06/21 Range/Units 10:28 10:28 10:28 WBC 12.2 H (3.8-10.6) k/uL RBC 4.49 (3.80-5.40) m/uL Hgb 14.4 (11.4-16.0) gm/dL Hct 44.4 (34.0-46.0) % MCV 98.9 (80.0-100.0) fL MCH 32.1 (25.0-35.0) pg MCHC 32.5 (31.0-37.0) g/dL RDW 12.9 (11.5-15.5) % Plt Count 312 (150-450) k/uL MPV 7.5 Neutrophils % 76 % Lymphocytes % 17 % Monocytes % 5 % Eosinophils % 1 % Basophils % 1 % Neutrophils # 9.2 H (1.3-7.7) k/uL Lymphocytes # 2.0 (1.0-4.8) k/uL Monocytes # 0.6 (0-1.0) k/uL Eosinophils # 0.1 (0-0.7) k/uL Basophils # 0.2 (0-0.2) k/uL Sodium 138 (137-145) mmol/L Potassium 3.8 (3.5-5.1) mmol/L Chloride 102 (98-107) mmol/L Carbon Dioxide 25 (22-30) mmol/L Anion Gap 11 mmol/L BUN 34 H (7-17) mg/dL Creatinine 1.46 H (0.52-1.04) mg/dL Est GFR (CKD-EPI)AfAm 43 (>60 ml/min/1.73 sqM) Est GFR (CKD-EPI)NonAf 37 (>60 ml/min/1.73 sqM) Glucose 155 H (74-99) mg/dL Plasma Lactic Acid Thien 1.6 (0.7-2.0) mmol/L Calcium 8.7 (8.4-10.2) mg/dL Total Bilirubin 0.8 (0.2-1.3) mg/dL AST 33 (14-36) U/L ALT 26 (4-34) U/L Alkaline Phosphatase 95 (38-126) U/L Total Protein 6.7 (6.3-8.2) g/dL Albumin 3.8 (3.5-5.0) g/dL Urine Color Urine Appearance (Clear) Urine pH (5.0-8.0) Ur Specific [place] (1.001-1.035) Urine Protein (Negative) Urine Glucose (UA) (Negative) Urine Ketones (Negative) Urine Blood (Negative) Urine Nitrite (Negative) Urine Bilirubin (Negative) Urine Urobilinogen (<2.0) mg/dL Ur Leukocyte Esterase (Negative) Urine RBC (0-5) /hpf Urine WBC (0-5) /hpf Ur Squamous Epith Cells (0-4) /hpf Urine Bacteria (None) /hpf Hyaline Casts (0-2) /lpf Urine Mucus (None) /hpf 08/06/21 Range/Units 11:08 WBC (3.8-10.6) k/uL RBC (3.80-5.40) m/uL Hgb (11.4-16.0) gm/dL Hct (34.0-46.0) % MCV (80.0-100.0) fL MCH (25.0-35.0) pg MCHC (31.0-37.0) g/dL RDW (11.5-15.5) % Plt Count (150-450) k/uL MPV Neutrophils % % Lymphocytes % % Monocytes % % Eosinophils % % Basophils % % Neutrophils # (1.3-7.7) k/uL Lymphocytes # (1.0-4.8) k/uL Monocytes # (0-1.0) k/uL Eosinophils # (0-0.7) k/uL Basophils # (0-0.2) k/uL Sodium (137-145) mmol/L Potassium (3.5-5.1) mmol/L Chloride (98-107) mmol/L Carbon Dioxide (22-30) mmol/L Anion Gap mmol/L BUN (7-17) mg/dL Creatinine (0.52-1.04) mg/dL Est GFR (CKD-EPI)AfAm (>60 ml/min/1.73 sqM) Est GFR (CKD-EPI)NonAf (>60 ml/min/1.73 sqM) Glucose (74-99) mg/dL Plasma Lactic Acid Thien (0.7-2.0) mmol/L Calcium (8.4-10.2) mg/dL Total Bilirubin (0.2-1.3) mg/dL AST (14-36) U/L ALT (4-34) U/L Alkaline Phosphatase (38-126) U/L Total Protein (6.3-8.2) g/dL Albumin (3.5-5.0) g/dL Urine Color Yellow Urine Appearance Cloudy H (Clear) Urine pH 5.0 (5.0-8.0) Ur Specific [place] 1.025 (1.001-1.035) Urine Protein 1+ H (Negative) Urine Glucose (UA) Negative (Negative) Urine Ketones 1+ H (Negative) Urine Blood Moderate H (Negative) Urine Nitrite Negative (Negative) Urine Bilirubin Negative (Negative) Urine Urobilinogen 2.0 (<2.0) mg/dL Ur Leukocyte Esterase Large H (Negative) Urine RBC 8 H (0-5) /hpf Urine WBC 46 H (0-5) /hpf Ur Squamous Epith Cells 13 H (0-4) /hpf Urine Bacteria Rare H (None) /hpf Hyaline Casts 5 H (0-2) /lpf Urine Mucus Rare H (None) /hpf - EKG Data EKG Comments: Sinus rhythm. Ventricular rate 88 bpm AL interval 141 ms, QRS duration 97 ms, QT/QTC 371/417 ms, PRT axes 16, -3, 40 - Radiology Data Radiology results: report reviewed, image reviewed Limited x-ray right knee shows no acute fracture or dislocation. The trach compartment joint spaces appear within normal limits and overlying soft tissue appears normal. X-ray right tib-fib shows no acute fracture or dislocation. There is calcification overlying the Achilles tendon. CT of the brain without contrast shows no acute intracranial posttraumatic cervical or acute scapular bone fracture. Chronic findings of left ventric ulomegaly, asymmetrical with volume loss of the left cerebral hemisphere primarily to left frontal lobe which is stable and congenital noted. No acute intracranial hemorrhage no masses shift or herniation. Disposition Clinical Impression: Acute renal failure Disposition: ADMITTED IP TO THIS HOSP Condition: Stable Is patient prescribed a controlled substance at d/c from ED?: No Referrals: Tonya Wallace DO [Primary Care Provider] - 1-2 days Time of Disposition: 13:31
[2021-08-06 10:46] LABS: Basophils # (A) 0.2 k/uL (0-0.2); Basophils % (A) 1 %; Eosinophils # (A) 0.1 k/uL (0-0.7); Eosinophils % (A) 1 %; HCT 44.4 % (34.0-46.0); HGB 14.4 gm/dL (11.4-16.0); Lymphocytes % (A) 17 %; MCH 32.1 pg (25.0-35.0); MCHC 32.5 g/dL (31.0-37.0); MCV 98.9 fL (80.0-100.0); Mean Platelet Volume 7.5; Monocytes # (A) 0.6 k/uL (0-1.0); Monocytes % (A) 5 %; Neutrophils # (A) 9.2 k/uL (1.3-7.7); Neutrophils % (A) 76 %; Platelet Count 312 k/uL (150-450); RBC 4.49 m/uL (3.80-5.40); RDW 12.9 % (11.5-15.5); WBC 12.2 k/uL (3.8-10.6)
--- NOTE | 2021-08-06 10:50 | CT ---
EXAMINATION TYPE: CT brain wo con DATE OF EXAM: 08/06/2021 COMPARISON: CT dated 01/08/2016 HISTORY: fall, hx of cerebral palsy CT DLP: 1082.4 mGycm Automated exposure control for dose reduction was used. TECHNIQUE: CT scan of the brain is performed without IV contrast administration. FINDINGS: Left ventriculomegaly, asymmetrical, with volume loss of the left cerebral hemisphere mainly the left frontal lobe, stable and likely congenital. Partial empty sella. No acute intracranial hemorrhage. No gross acute cortical infarct. No midline shift or herniation. Unremarkable basal cisterns and CP a ngles. No gross space-occupying lesion or vasogenic edema. Unremarkable orbits. Clear visualized paranasal sinuses and mastoid air cells. Unremarkable calvarial bones. IMPRESSION: No acute intracranial posttraumatic sequela or acute calvarial bone fracture. Chronic findings as sanjay cribed above.
[2021-08-06 10:57] LABS: Albumin 3.8 g/dL (3.5-5.0); Calcium 8.7 mg/dL (8.4-10.2); Potassium 3.8 mmol/L (3.5-5.1); Total Bilirubin 0.8 mg/dL (0.2-1.3); Total Protein 6.7 g/dL (6.3-8.2)
--- NOTE | 2021-08-06 11:08 | XR ---
EXAMINATION TYPE: XR knee limited RT DATE OF EXAM: 08/06/2021 CLINICAL HISTORY: pain TECHNIQUE: Two views of the right knee are obtained. COMPARISON: None. FINDINGS: There is no acute fracture/dislocation. The tri-compartment joint spaces appear within no rmal limits. The overlying soft tissue appears unremarkable. IMPRESSION: There is no acute fracture or dislocation.ICD 10 NO FRACTURE, INITIAL EVALUATION
--- NOTE | 2021-08-06 11:08 | XR ---
EXAMINATION TYPE: XR tibia fibula RT DATE OF EXAM: 08/06/2021 CLINICAL HISTORY: pain TECHNIQUE: AP and lateral images of the right tibia and fibula are obtained. COMPARISON: None. FINDINGS: There is no acute fracture/dislocation evident. The joint spaces appear within normal mullins its. Calcification overlying the Achilles tendon is noted. IMPRESSION: There is no acute fracture or dislocation seen. ICD 10 NO FRACTURE, INITIAL EVALUATION
[2021-08-06] MEDS ORDERED: SODIUM CHLORIDE 0.9% 1,000 ML IV STA (11:12)
[2021-08-06 11:27] LABS: Appearance,Urine Cloudy (Clear); Bacteria,Urine Rare /hpf; Bilirubin,Urine Negative (Negative); Blood,Urine Moderate (Negative); Color,Urine Yellow; Glucose,Urine (UA) Negative (Negative); Hyaline Casts,Urine 5 /lpf (0-2); Ketones,Urine 1+ (Negative); Leukocyte Esterase,Urine Large (Negative); Mucus,Urine Rare /hpf; Nitrite,Urine Negative (Negative); Protein,Urine 1+ (Negative); RBC,Urine 8 /hpf (0-5); Specific Gravity,Urine 1.025 (1.001-1.035); Squamous Epithelial Cell,Urine 13 /hpf (0-4); WBC,Urine 46 /hpf (0-5)
[2021-08-06] MEDS ORDERED: NALOXONE 0.4 MG/ML 1 ML VIAL IV PRN (13:32)
[2021-08-06] MEDS ORDERED: ACETAMINOPHEN TAB 325 MG TAB PO PRN (13:32)
[2021-08-06] MEDS ORDERED: cefTRIAXone IN SWFI 1,000 MG/10 ML SYRINGE IVP STA (13:34)
[2021-08-06] MEDS: SODIUM CHLORIDE 0.9% 1,000 ML IV SCH ×2 (14:07→23:43)
[2021-08-06 18:02] LABS: Glucose,Whole Blood 163 mg/dL (70-110)
[2021-08-07 06:56] LABS: Glucose,Whole Blood 124 mg/dL (70-110)
[2021-08-07] MEDS: SODIUM CHLORIDE 0.9% 1,000 ML IV SCH ×3 (07:12→23:20)
[2021-08-07] MEDS ORDERED: ONDANSETRON 4 MG/2 ML VIAL IVP PRN (09:11)
[2021-08-07] MEDS: DULoxetine HCL 30 MG CAPSULE.DR PO SCH (09:34)
[2021-08-07 11:05] LABS: Glucose,Whole Blood 152 mg/dL (70-110)
[2021-08-07] MEDS: INSULIN ASPART (NovoLOG) 100 UNIT/ML VIAL SQ SCH ×3 (13:44→21:42)
[2021-08-07 17:03] LABS: Glucose,Whole Blood 171 mg/dL (70-110)
[2021-08-07 19:53] LABS: Glucose,Whole Blood 138 mg/dL (70-110)
[2021-08-07] MEDS ORDERED: ATORVASTATIN 10 MG TAB PO SCH (21:00)
[2021-08-07 21:03] VITALS: RESP 18
--- NOTE | 2021-08-07 22:50 | P.HPIM ---
History of Present Illness H&P Date: 08/07/21 Chief Complaint: weakness Safia Joyner is a 66 yo F with PMH cerebral palsy, HTN, HLD, T2DM who presented to the ED complaining of increased weakness and falls over the past few days. She complains she has been feeling weak and malaised in general that has worsened in the past week. She does endorse nausea and abdominal bloating. She complains that she fell at home and is having some R knee pain after landing on this. She denies blacking out states she was shaky. No fever, chills, diarrhea, nausea, vomiting. On presentation BP 99/57, WBC 12.2, Cr 1.46, UA with large LE. CT head and XR R knee no acute process. Review of Systems All systems: negative Constitutional: Reports malaise, Reports weakness, Denies chills, Denies fever Eyes: denies blurred vision, denies pain Ears, nose, mouth and throat: Denies headache, Denies sore throat Cardiovascular: Denies chest pain, Denies shortness of breath Respiratory: Denies cough Gastrointestinal: Denies abdominal pain, Denies diarrhea, Denies nausea, Denies vomiting Genitourinary: Denies dysuria, Denies hematuria Musculoskeletal: Reports as per HPI, Reports frequent falls, Denies myalgias Integumentary: Denies pruritus, Denies rash Neurological: Denies numbness, Denies weakness Psychiatric: Denies anxiety, Denies depression Endocrine: Denies fatigue, Denies weight change Past Medical History Past Medical History: Diabetes Mellitus, Hyperlipidemia, Hypertension, Seizure Disorder Additional Past Medical History / Comment(s): uti, cerebral palsy on with rt side weakness. History of Any Multi-Drug Resistant Organisms: None Reported Past Surgical History: Orthopedic Surgery Additional Past Surgical History / Comment(s): wrist surgery, right ankle Past Anesthesia/Blood Transfusion Reactions: No Reported Reaction Past Psychological History: No Psychological Hx Reported Additional Psychological History / Comment(s): Reportedly . No experience no travel. Denied animal exposures. Denies significant tobacco or alcohol use Smoking Status: Never smoker Past Alcohol Use History: None Reported Past Drug Use History: None Reported - Past Family History Father Family Medical History: Dementia Additional Family Medical History / Comment(s): Parkinsons and Alzheimers Mother Family Medical History: Myocardial Infarction ([place]) Medications and Allergies Home Medications Medication Instructions Recorded Confirmed Type DULoxetine HCL [Cymbalta] 30 mg PO DAILY 12/31/15 08/06/21 History Atorvastatin [Lipitor] 10 mg PO DAILY 08/06/21 08/06/21 History Lisinopril-Hctz 10-12.5 mg 1 tab PO DAILY 08/06/21 08/06/21 History [Zestoretic 10-12.5] Semaglutide [Ozempic] 0.25 mg SQ TU 08/06/21 08/06/21 History allopurinoL [Zyloprim] 100 mg PO DAILY 08/06/21 08/06/21 History metFORMIN HCL 1,000 mg PO DAILY 08/06/21 08/06/21 History Allergies Allergy/AdvReac Type Severity Reaction Status Date / Time No Known Allergies Allergy Verified 08/06/21 11:32 Physical Exam Vitals: Vital Signs Temp Pulse Resp BP BP BP Pulse Ox 08/07/21 21:00 98.5 F 86 18 116/73 94 L 08/07/21 11:19 98.3 F 93 15 122/75 93 L 08/07/21 04:39 98.3 F 93 16 118/74 94 L Intake and Output 08/07/21 08/07/21 08/07/21 06:59 14:59 22:59 Intake Total 400 2930 Balance 400 2930 Intake: Intake, IV Titration 1350 Amount Sodium Chloride 0.9% 1, 1300 000 ml @ 130 mls/hr IV . Q7H42M [facility] Rx#:[id number] cefTRIAXone 1 gm In 50 Sodium Chloride 0.9% 50 ml @ 100 mls/hr IVPB Q24HR [facility] Rx#:[id number] Oral 400 1580 Other: Voiding Method Toilet # Voids 3 4 General: well developed, elderly female in NAD HEENT: normocephalic, atraumatic, mucus membranes moist Neck: supple, no JVD or thyromegaly CV: RRR, no murmur Lungs: Normal effort, clear throughout Abd: soft, suprapubic tenderness Neuro: alert and oriented x3, CN intact Skin: warm and dry Results CBC & Chem 7: 08/06/21 10:28 08/06/21 10:28 Labs: Abnormal Lab Results - Last 24 Hours (Table) 08/07/21 08/07/21 08/07/21 Range/Units 06:54 11:03 17:02 POC Glucose (mg/dL) 124 H 152 H 171 H (70-110) mg/dL 08/07/21 Range/Units 19:43 POC Glucose (mg/dL) 138 H (70-110) mg/dL Microbiology - Last 24 Hours (Table) 08/06/21 11:08 Urine Culture - Final Urine,Voided Thrombosis Risk Factor Assmnt - Choose All That Apply Any of the Below Risk Factors Present?: Yes Each Factor Represents 1 point: Obesity (BMI >25) Other Risk Factors: Yes Each Risk Factor Represents 2 Points: Age 61-74 years Thrombosis Risk Factor Assessment Total Risk Factor Score: 3 Thrombosis Risk Factor Assessment Level: Moderate Risk Assessment and Plan Plan: Acute kidney injury. Start IV fluids. Follow labs Complicated cystitis. IV rocephin T2DM. Hold metformin, accucheck and sliding scale insulin HTN. Hold lisinopril with JOY. Follow BP HLD
[2021-08-08] MEDS: SODIUM CHLORIDE 0.9% 1,000 ML IV SCH (05:33)
[2021-08-08 07:15] LABS: Glucose,Whole Blood 129 mg/dL (70-110)
[2021-08-08] MEDS: INSULIN ASPART (NovoLOG) 100 UNIT/ML VIAL SQ SCH ×2 (07:25→12:47)
[2021-08-08 09:13] LABS: Anion Gap 12.2 mmol/L (10.00-18.00); BUN/Creat Ratio 14.8 Ratio (12.00-20.00); Blood Urea Nitrogen 14.8 mg/dL (9.0-27.0); Calcium 8.1 mg/dL (8.7-10.3); Carbon Dioxide 19.8 mmol/L (20.0-27.5); Non-African American GFR(CKD) 58.7 (60.0-200.0); Potassium 3.9 mmol/L (3.5-5.5)
[2021-08-08] MEDS: DULoxetine HCL 30 MG CAPSULE.DR PO SCH (09:42)
[2021-08-08 11:44] LABS: Glucose,Whole Blood 214 mg/dL (70-110)
[2021-08-08 12:42] VITALS: BP 126/77; PULSE 86; TEMP 98.8
--- NOTE | 2021-08-08 17:36 | DS ---
DISCHARGE SUMMARY FINAL DIAGNOSIS: 1. Acute kidney injury, improved. 2. Complicated cystitis. 3. Diabetes mellitus, type 2. 4. Hypertension. DISCHARGE DISPOSITION: The patient will be discharged in stable condition with guarded prognosis. HISTORY OF PRESENT ILLNESS: This 66-year-old woman with a past medical history of multiple medical problems was admitted with UTI and acute kidney injury. Patient improved significantly with hydration. Patient is keen on going home at this time. PHYSICAL EXAMINATION: Vitals are stable. CARDIOVASCULAR: S1, S2 muffled. ABDOMEN: Soft. NERVOUS SYSTEM: No focal deficit. DISCHARGE ADVICE AND MEDICATIONS: 1. Diet is cardiac. 2. Activity limited until followup. 3. I would recommend a short course of Ceftin 500 mg p.o. b.i.d. for 4 days. 4. Continue the rest of the medications. 5. Hold the lisinopril/hydrochlorothiazide and follow up with Dr. Garcia in the outpatient setting. MMODL / MONTSEN: [id number] /
== END 2021-08-08 16:22 | disposition home or self-care (01) | DRG 683 ==
LOC: EC 09:52 → 5NMEDONC 12:48 → 6NMEDSUR 17:32 → 5NMEDONC 18:00
PROVIDERS: ADMIT Family Medicine; ATTEND Family Medicine
DX: N17.9 Acute kidney failure, unspecified (principal); G81.91 Hemiplegia, unspecified affecting right dominant side; B37.89 Other sites of candidiasis; N30.90 Cystitis, unspecified without hematuria; G80.9 Cerebral palsy, unspecified; R47.9 Unspecified speech disturbances; E11.9 Type 2 diabetes mellitus without complications; G40.909 Epilepsy, unspecified, not intractable, without status epilepticus; E78.5 Hyperlipidemia, unspecified; R53.1 Weakness; M24.541 Contracture, right hand; R29.810 Facial weakness; R31.9 Hematuria, unspecified; I10 Essential (primary) hypertension; N30.20 Other chronic cystitis without hematuria; W18.30XA Fall on same level, unspecified, initial encounter; Z79.899 Other long term (current) drug therapy; Z79.84 Long term (current) use of oral hypoglycemic drugs; Z87.440 Personal history of urinary (tract) infections; Z82.0 Family history of epilepsy and other diseases of the nervous system; Z82.49 Family history of ischemic heart disease and other diseases of the circulatory system
CPT/HCPCS: 36415; 70450; 80048; 80053; 81001; 83605; 85025; 87086; 93005; 96360; 96361; 99285

== ENCOUNTER → 2021-11-26 | Outpatient (CLI) | payer MEDICARE, OTHER ==
--- NOTE | 2021-11-27 09:48 | MM ---
Reason for Exam: Screening (asymptomatic). Last mammogram was performed 1 year(s) and 3 month(s) ago. Patient History: Menarche at age 17. First Full-Term at age 26. Postmenopausal. Risk Values: Rose 5 year model risk: 1.7%. NCI Lifetime model risk: 6.1%. Prior Study Comparison: 09/07/2016 Bilateral Screening Mammogram, [facility]. 10/19/2017 Bilateral Screening Mammogram, [facility]. 09/01/2020 Bilateral Screening Mammogram, [facility]. Tissue Density: The breast tissue is almost entirely fat. Findings: Analyzed By CAD. Right breast biopsy clip is present. There is no suspicious group of microcalcifications or new suspicious mass in either breast. Overall Assessment: Negative, BI-RAD 1 Management: Screening Mammogram of both breasts in 1 year. A clinical breast exam by your physician is recommended on an annual basis and results should be correlated with mammographic findings. [facility] will attempt to contact patient to return for supplemental views and ultrasound if indicated. Electronically signed and approved by: Jamil Almanza DO
== END | disposition home or self-care (01) ==
LOC: RADMAMWWP 10:31
PROVIDERS: ATTEND Family Medicine
DX: Z12.31 Encounter for screening mammogram for malignant neoplasm of breast (principal); Z80.3 Family history of malignant neoplasm of breast; Z78.0 Asymptomatic menopausal state
CPT/HCPCS: 77063; 77067

== ENCOUNTER 2023-11-19 22:55 | Emergency (ER) | payer OTHER ==
[2023-11-19 23:05] VITALS: RESP 18; TEMP 97.9
--- NOTE | 2023-11-19 23:13 | ED ---
Wound/Laceration HPI - General Chief Complaint: Wound/Laceration Stated Complaint: L hand laceration Time Seen by Provider: 11/19/23 23:12 Source: patient, EMS, RN notes reviewed Mode of arrival: EMS Limitations: no limitations - History of Present Illness Initial Comments: 68 year old female presenting to the ER with a chief complaint of laceration. Patient states she was using a mandolin slicer to cut potatoes and accidentally cut her left third finger. Patient denies any limited range of motion. She states wound is oozing and she is having difficulty controlling this. Tetanus is up-to-date. No other injuries. - Related Data Home Medications Medication Instructions Recorded Confirmed DULoxetine HCL [Cymbalta] 30 mg PO DAILY 12/31/15 04/16/22 Atorvastatin [Lipitor] 10 mg PO DAILY 08/06/21 04/16/22 allopurinoL [Zyloprim] 100 mg PO DAILY 08/06/21 04/16/22 metFORMIN HCL 2,000 mg PO DAILY 08/06/21 04/16/22 Cholecalciferol [Vitamin D3 (25 50 mcg PO DAILY 04/16/22 04/16/22 Mcg = 1000 Iu)] Tirzepatide [Mounjaro] 5 mg SQ TU 04/16/22 04/16/22 Previous Rx's Medication Instructions Recorded lisinopriL [Zestril] 10 mg PO DAILY #30 tab 04/19/22 Allergies Allergy/AdvReac Type Severity Reaction Status Date / Time No Known Allergies Allergy Verified 04/16/22 12:45 Review of Systems ROS Statement: Those systems with pertinent positive or pertinent negative responses have been documented in the HPI. ROS Other: All systems not noted in ROS Statement are negative. Past Medical History Past Medical History: Diabetes Mellitus, Hyperlipidemia, Hypertension, Seizure Disorder Additional Past Medical History / Comment(s): uti, cerebral palsy on with rt side weakness, patient last seizure when she was a kid History of Any Multi-Drug Resistant Organisms: None Reported Past Surgical History: Orthopedic Surgery Additional Past Surgical History / Comment(s): right wrist surgery, right ankle Past Anesthesia/Blood Transfusion Reactions: No Reported Reaction Past Alcohol Use History: Occasional - Past Family History Father History Unknown: Yes Family Medical History: Dementia Additional Family Medical History / Comment(s): Parkinsons and Alzheimers Mother History Unknown: Yes Family Medical History: Myocardial Infarction (ND) General Exam Limitations: no limitations General appearance: alert, in no apparent distress Respiratory exam: Present: normal lung sounds bilaterally. Absent: respiratory distress, wheezes, rales, rhonchi, stridor Cardiovascular Exam: Present: regular rate, normal rhythm, normal heart sounds. Absent: systolic murmur, diastolic murmur, rubs, gallop, clicks Extremities exam: Present: normal inspection, full ROM, normal capillary refill, other (1 cm avulsion to left third digit. Minimal active bleeding.). Absent: tenderness, pedal edema, joint swelling, calf tenderness Skin exam: Present: warm, dry, intact, normal color. Absent: rash Course Vital Signs 11/19/23 23:01 Temperature 97.9 F Pulse Rate 100 Respiratory 18 Rate Blood Pressure 163/103 O2 Sat by Pulse 95 Oximetry Medical Decision Making - Medical Decision Making Was pt. sent in by a medical professional or institution (, PA, LIBRARY SERVICES ASSISTANT, urgent care, hospital, or alf...) When possible be specific @ -No Did you speak to anyone other than the patient for history (EMS, parent, family, police, friend...)? What history was obtained from this source @ -No Did you review nursing and triage notes (agree or disagree)? Why? @ -I reviewed and agree with nursing and triage notes Were old charts reviewed (outside hosp., previous admission, EMS record, old EKG, old radiological studies, urgent care reports/EKG's, alf records)? Report findings @ -No old charts were reviewed Differential Diagnosis (chest pain, altered mental status, abdominal pain women, abdominal pain men, vaginal bleeding, weakness, fever, dyspnea, syncope, headache, dizziness, GI bleed, back pain, seizure, CVA, palpatations, mental health, musculoskeletal)? @ -Laceration, abrasion, contusion, avulsion, foreign body this list is not meant to be all-inclusive EKG interpreted by me (3pts min.). @ -None done X-rays interpreted by me (1pt min.). @ -None done CT interpreted by me (1pt min.). @ -None done U/S interpreted by me (1pt. min.). @ -None done What testing was considered but not performed or refused? (CT, X-rays, U/S, labs)? Why? @ -None What meds were considered but not given or refused? Why? @ -None Did you discuss the management of the patient with other professionals (professionals i.e. , PA, LIBRARY SERVICES ASSISTANT, lab, RT, psych nurse, foster care social worker, hangar attendant, teacher, airline pilot/first officer, rn field case manager)? Give summary @ -No Was smoking cessation discussed for >3mins.? @ -No Was critical care preformed (if so, how long)? @ -No Were there social determinants of health that impacted care today? How? (Homelessness, low income, unemployed, alcoholism, drug addiction, transportation, low edu. Level, literacy, decrease access to med. care, alf, rehab)? @ -No Was there de-escalation of care discussed even if they declined (Discuss DNR or withdrawal of care, Hospice)? DNR status @ -No What co-morbidities impacted this encounter? (DM, HTN, Smoking, COPD, CAD, Cancer, CVA, ARF, Chemo, Hep., AIDS, mental health diagnosis, sleep apnea, morbid obesity)? @ -None Was patient admitted / discharged? Hospital course, mention meds given and route, prescriptions, significant lab abnormalities, going to OR and other pertinent info. @ - Discharged. 68 year old female presenting to the ER with a chief complaint of a laceration. History and physical exam completed. Vitals within the limits. Patient no signs of acute distress. Exam remarkable for a 1 cm avulsion to left third digit. Minimal active bleeding. Left upper extremity neurovascular intact. Patient has full active range of motion of LUE. Tetanus is up-to-date. Compressive dressing placed. Wound care discussed. Strict return parameters discussed. Patient discharged in stable condition with follow-up to PCP. Patient verbally expressed understanding and agreement with care plan. Case discussed with ED attending, Dr. Rubio. Undiagnosed new problem with uncertain prognosis? @ -No Drug Therapy requiring intensive monitoring for toxicity (Heparin, Nitro, Insulin, Cardizem)? @ -No Were any procedures done? @ -No Diagnosis/symptom? @ -Soft tissue avulsion injury of finger Acute, or Chronic, or Acute on Chronic? @ -Acute Uncomplicated (without systemic symptoms) or Complicated (systemic symptoms)? @ -Uncomplicated Side effects of treatment? @ -No Exacerbation, Progression, or Severe Exacerbation? @ -No Poses a threat to life or bodily function? How? (Chest pain, [place], [place], pneumonia, PE, COPD, DKA, ARF, appy, cholecystitis, CVA, Diverticulitis, Homicidal, Suicidal, threat to staff... and all critical care pts) @ -No Disposition Clinical Impression: Avulsion of skin of finger Disposition: HOME SELF-CARE Condition: Stable Instructions (If sedation given, give patient instructions): Laceration (ED) Additional Instructions: Keep area clean and dry. Follow-up with PCP. Return to the ER for any new or worsening concerns. Is patient prescribed a controlled substance at d/c from ED?: No Referrals: Holland Davis MD [Primary Care Provider] - 1-2 days Time of Disposition: 23:13
[2023-11-19 23:35] VITALS: BP 182/96; PULSE 94
== END 2023-11-19 23:50 | disposition home or self-care (01) ==
LOC: EC 22:55
CPT/HCPCS: 99282